=== PATIENT | female | born 1930 | race Caucasian/White ===

== ENCOUNTER 2017-06-24 09:24 | Emergency (ER) | payer OTHER ==
[2017-06-24] MEDS ORDERED: IPRATROPIUM BROM 0.5MG/2.5ML ONE (10:18)
[2017-06-24] MEDS ORDERED: ALBUTEROL 2.5 MG/3 ML NEB SOL ONE (10:18)
[2017-06-24] MEDS ORDERED: predniSONE 20 MG TAB ONE (10:18)
[2017-06-24] MEDS ORDERED: METHYLPREDNISOLONE 40 MG INJ ONE (10:28)
--- NOTE | 2017-06-24 10:51 | RAD REPORT ---
EXAM DESCRIPTION: CT - Thorax Wo Con CLINICAL HISTORY: Cough, chest pain. COMPARISON: None FINDINGS: Mild linear subsegmental atelectasis is present both posterior lung bases. Moderate bronch iectasis is present bilaterally. No focal infiltrate is present. No pneumothorax. No pleural or peric ardial fluid. No axillary, mediastinal or hilar adenopathy. No concerning bony finding. Moderate axial hiatal hernia. All CT scans are performed using dose optimization technique as appropriate and may include automated exposure control or mA/KV adjustment according to patient size. IMPRESSION: Moderate bilateral bronchiectasis.
[2017-06-24 11:45] LABS: Absolute Lymphocytes (CBC) 1.3 K/uL (0.7-4.9); Absolute Monocytes 0.6 K/uL (0.1-1.3); Absolute Neutrophil 5.7 K/uL (1.8-8.0); Basophils % 0.5 % (0-1.3); Eosinophils % 0.4 % (0-4.4); Hematocrit 41.4 % (36.0-45.0); Lymphocytes % 17.3 % (15.3-44.8); MCH 31.1 pg (27.0-35.0); MCV 92.2 fL (80-100); MPV 9.8 fL (7.6-11.3); RBC Red Blood Cell Count 4.49 M/uL (3.86-4.86)
[2017-06-24 11:49] LABS: Protime INR 1.12
[2017-06-24 12:00] LABS: Potassium 3.6 mEq/L (3.6-5.0)
--- NOTE | 2017-06-24 12:17 | EDPHYS ---
Physician Documentation [facility] Name: Joselyn Lomeli Age: 86 yrs Sex: Female : 1930 Arrival Date: 06/24/2017 Time: 09:28 Bed 15 Private MD: ED Physician Dano Tolbert HPI: 06/24 14:47 This 86 yrs old Female presents to ER via Wheelchair with complaints of Chest gs Congestion. 14:47 The patient or guardian reports cough, difficulty breathing. Onset: The gs symptoms/episode began/occurred gradually, 1 week(s) ago, and became persistent. Severity of symptoms: At their worst the symptoms were moderate, in the emergency department the symptoms are unchanged. Modifying factors: The symptoms are alleviated by nothing. Associated signs and symptoms: Pertinent negatives: fever. The patient has experienced similar episodes in the past, several times. The patient has been recently seen by a physician: the patient's primary care provider, 4 day(s) ago, with similar presenting complaints. concerned may have aspirated as has esophageal diverticulum. Historical: - Allergies: 09:36 Bactrim; aa5 09:36 Iodine; aa5 09:36 Sulfa (Sulfonamide Antibiotics); aa5 - Home Meds: 09:36 aspirin 81 mg Oral TbEC 1 tab three times a week [Active]; Diovan 320 mg Oral tab 1 tab hj once daily [Active]; - PMHx: 09:36 diptheria; esophageal pouch; hiatal hernia; Hypertension; Irregular heart rate; Polio; aa5 COPD; - PSHx: 09:36 Appendectomy; Hysterectomy; cardiac ablasion; kidney stone removal; aa5 - Immunization history:: Pneumococcal vaccine is not up to date, Flu vaccine is not up to date. - Social history:: Smoking status: Patient/guardian denies using tobacco, never smoked. ROS: 14:47 All other systems are negative. gs Exam: 14:47 Head/Face: Normocephalic, atraumatic. Eyes: Pupils equal round and reactive to light, gs extra-ocular motions intact. Lids and lashes normal. Conjunctiva and sclera are non-icteric and not injected. Cornea within normal limits. Periorbital areas with no swelling, redness, or edema. ENT: Nares patent. No nasal discharge, no septal abnormalities noted. Tympanic membranes are normal and external auditory canals are clear. Oropharynx with no redness, swelling, or masses, exudates, or evidence of obstruction, uvula midline. Mucous membranes moist. Neck: Trachea midline, no thyromegaly or masses palpated, and no cervical lymphadenopathy. Supple, full range of motion without nuchal rigidity, or vertebral point tenderness. No Meningismus. Chest/axilla: Normal chest wall appearance and motion. Nontender with no deformity. No lesions are appreciated. Cardiovascular: Regular rate and rhythm with a normal S1 and S2. No gallops, murmurs, or rubs. Normal PMI, no JVD. No pulse deficits. Abdomen/GI: Soft, non-tender, with normal bowel sounds. No distension or tympany. No guarding or rebound. No evidence of tenderness throughout. Back: No spinal tenderness. No costovertebral tenderness. Full range of motion. Skin: Warm, dry with normal turgor. Normal color with no rashes, no lesions, and no evidence of cellulitis. MS/ Extremity: Pulses equal, no cyanosis. Neurovascular intact. Full, normal range of motion. Neuro: Awake and alert, GCS 15, oriented to person, place, time, and situation. Cranial nerves II-XII grossly intact. Motor strength 5/5 in all extremities. Sensory grossly intact. Cerebellar exam normal. Normal gait. 14:47 Constitutional: The patient appears alert, awake. 14:47 Respiratory: the patient does not display signs of respiratory distress, Respirations: no acute changes, is not noted, Breath sounds: rhonchi, that are moderate, wheezing: expiratory that is mild. 14:47 ECG was reviewed by the Attending Physician. Vital Signs: 09:34 BP 134 / 69; Pulse 86; Resp 16 S; Temp 97.6(TE); Pulse Ox 96% on R/A; Weight 61.23 kg aa5 (R); Height 5 ft. 6 in. (167.64 cm) (R); Pain 0/10; 10:49 BP 137 / 71; Pulse 79; Resp 16; Pulse Ox 95% on Nebulizer Mask; mh5 12:52 BP 138 / 70; Pulse 75; Resp 18; Pulse Ox 100% on R/A; hj 09:34 Body Mass Index 21.79 (61.23 kg, 167.64 cm) aa MDM: 10:05 Patient medically screened. gs 14:47 Differential Diagnosis: Upper Respiratory Infection Asthma Exacerbation Pneumonia. Data reviewed: vital signs, nurses notes. Response to treatment: the patient's symptoms have markedly improved after treatment, and as a result, I will discharge patient. Physician consultation: Vini Monroy MD regarding consult, patient's condition, need to evaluate the patient as soon as possible, and will see patient in inpatient room. 06/24 10:11 Order name: Basic Metabolic Panel; Complete Time: 12:13 06/24 10:11 Order name: CBC with Diff; Complete Time: 12: 06/24 10:11 Order name: CT Chest Wo Con; Complete Time: 11: 06/24 10:11 Order name: PT-INR; Complete Time: 12: 06/24 10:11 Order name: Troponin (emerg Dept Use Only); Complete Time: 12: 06/24 10:11 Order name: Blood Culture* 06/24 10:11 Order name: EKG; Complete Time: 10:12 06/24 10:11 Order name: Cardiac monitoring; Complete Time: 10: 06/24 10:11 Order name: EKG - Nurse/Tech; Complete Time: 11:17 06/24 10:11 Order name: IV Saline Lock; Complete Time: 11: 06/24 10:11 Order name: Labs collected and sent; Complete Time: 11: 06/24 10:11 Order name: O2 Per Protocol; Complete Time: 10: 06/24 10:11 Order name: O2 Sat Monitoring; Complete Time: 10: 06/24 11:20 Order name: Labs - recollect needed; Complete Time: 11:24 bd EC:47 Rate is 63 beats/min. Rhythm is regular. WA interval is prolonged. QRS interval is gs normal. QT interval is normal. T waves are Normal. No ST changes noted. Clinical impression: Abnormal EKG without significant change. Interpreted by me. Administered Medications: 10:23 Not Given (Patient Refused): predniSONE 40 mg PO once hj 10:30 Drug: Albuterol 2.5 mg Route: Inhalation; rv 10:30 Drug: AtroVENT Aerosol 0.5 mg Route: Inhalation; rv 11:00 Drug: SOLU-Medrol 40 mg Route: IVP; Site: left antecubital; rv 11:22 Follow up: Response: No adverse reaction hj Disposition: 06/24/17 12:17 Discharged to Home. Impression: Chronic obstructive pulmonary disease with (acute) exacerbation. - Condition is Stable. - Discharge Instructions: Chronic Obstructive Pulmonary Disease. - Medication Reconciliation Form, Thank You Letter, Antibiotic Education, Prescription Opioid Use form. - Follow up: Private Physician; When: 2 - 3 days; Reason: Recheck today's complaints, Re-evaluation by your physician. Signatures: Dispatcher [employer] EDBrooklyn Tabares Audri RN RN aa5 Richard Hall RN RN hj Dano Tolbert MD MD gs Maurizio Rubalcava RN RN rv Corrections: (The following items were deleted from the chart) 12:53 12:17 06/24/2017 12:17 Discharged to Home. Impression: Chronic obstructive pulmonary hj disease with (acute) exacerbation. Condition is Stable. Forms are Medication Reconciliation Form, Thank You Letter, Antibiotic Education, Prescription Opioid Use. Follow up: Private Physician; When: 2 - 3 days; Reason: Recheck today's complaints, Re-evaluation by your physician. gs
--- NOTE | 2017-06-24 12:17 | ER ---
Nurse's Notes [facility] Name: Joselyn Lomeli Age: 86 yrs Sex: Female : 1930 Arrival Date: 06/24/2017 Time: 09:28 Bed 15 Private MD: Diagnosis: Chronic obstructive pulmonary disease with (acute) exacerbation Presentation: 06/24 09:33 Presenting complaint: Patient states: chest congestion and cough. Pt states aa5 " gave me a steroid (prednisone) and cough syrup but it's not helping". Pt also reports SOB. Transition of care: patient was not received from another setting of care. Onset of symptoms was June 2017. Initial Sepsis Screen: Does the patient meet any 2 criteria? No. Patient's initial sepsis screen is negative. Does the patient have a suspected source of infection? No. Patient's initial sepsis screen is negative. Care prior to arrival: None. 09:33 Method Of Arrival: Wheelchair aa5 09:33 Acuity: AZAR 3 aa5 Triage Assessment: 09:53 General: Appears in no apparent distress. uncomfortable, Behavior is calm, cooperative, hj appropriate for age. Pain: Denies pain. Historical: - Allergies: 09:36 Bactrim; aa5 09:36 Iodine; aa5 09:36 Sulfa (Sulfonamide Antibiotics); aa5 - Home Meds: 09:36 aspirin 81 mg Oral TbEC 1 tab three times a week [Active]; Diovan 320 mg Oral tab 1 tab hj once daily [Active]; - PMHx: 09:36 diptheria; esophageal pouch; hiatal hernia; Hypertension; Irregular heart rate; Polio; aa5 COPD; - PSHx: 09:36 Appendectomy; Hysterectomy; cardiac ablasion; kidney stone removal; aa5 - Immunization history:: Pneumococcal vaccine is not up to date, Flu vaccine is not up to date. - Social history:: Smoking status: Patient/guardian denies using tobacco, never smoked. Screenin:53 Abuse screen: Denies threats or abuse. Denies injuries from another. Nutritional hj screening: No deficits noted. Tuberculosis screening: No symptoms or risk factors identified. Fall Risk Secondary diagnosis (15 points) polio. Assessment: 09:55 General: Appears in no apparent distress. uncomfortable, Behavior is calm, cooperative, hj appropriate for age. Pain: Denies pain. Neuro: Level of Consciousness is awake, alert, obeys commands, Oriented to person, place, time, situation, Appropriate for age. Cardiovascular: Capillary refill < 3 seconds Patient's skin is warm and dry. Respiratory: Airway is patent Respiratory effort is even, unlabored, Respiratory pattern is regular, symmetrical. GI: No signs and/or symptoms were reported involving the gastrointestinal system. : No signs and/or symptoms were reported regarding the genitourinary system. EENT: No signs and/or symptoms were reported regarding the EENT system. Derm: No signs and/or symptoms reported regarding the dermatologic system. Musculoskeletal: No signs and/or symptoms reported regarding the musculoskeletal system. 10:45 Reassessment: Patient and/or family updated on plan of care and expected duration. Pain hj level reassessed. Patient is alert, oriented x 3, equal unlabored respirations, skin warm/dry/pink. Patient states feeling better. 11:30 Reassessment: Patient and/or family updated on plan of care and expected duration. Pain hj level reassessed. Patient is alert, oriented x 3, equal unlabored respirations, skin warm/dry/pink. awaiting results and POC; family in room;. 12:52 Reassessment: Patient and/or family updated on plan of care and expected duration. Pain hj level reassessed. Patient is alert, oriented x 3, equal unlabored respirations, skin warm/dry/pink. for D/C instructions; Patient states feeling better. Vital Signs: 09:34 BP 134 / 69; Pulse 86; Resp 16 S; Temp 97.6(TE); Pulse Ox 96% on R/A; Weight 61.23 kg aa5 (R); Height 5 ft. 6 in. (167.64 cm) (R); Pain 0/10; 10:49 BP 137 / 71; Pulse 79; Resp 16; Pulse Ox 95% on Nebulizer Mask; mh5 12:52 BP 138 / 70; Pulse 75; Resp 18; Pulse Ox 100% on R/A; hj 09:34 Body Mass Index 21.79 (61.23 kg, 167.64 cm) aa5 ED Course: 09:28 Patient arrived in ED. sb2 09:34 Triage completed. aa5 09:34 Arm band placed on. aa5 09:44 Richard Hall, RN is Primary Nurse. hj 09:49 Dano Tolbert MD is Attending Physician. 09:53 Patient has correct armband on for positive identification. Placed in gown. Bed in low hj position. Call light in reach. Side rails up X 1. Adult w/ patient. 10:31 CT completed. Patient tolerated procedure well. Patient moved to CT via stretcher. Patient moved back from CT. 10:35 CT Chest Wo Con In Process Unspecified. EDMS 10:42 EKG done, by landfill gas technician. reviewed by Dano Tolbert MD. sm3 11:20 Inserted saline lock:. rv 11:20 Inserted saline lock: 22 gauge in left antecubital area, using aseptic technique. rv 12:53 No provider procedures requiring assistance completed. IV discontinued, intact, hj bleeding controlled, No redness/swelling at site. Pressure dressing applied. Administered Medications: 10:23 Not Given (Patient Refused): predniSONE 40 mg PO once hj 10:30 Drug: Albuterol 2.5 mg Route: Inhalation; rv 10:30 Drug: AtroVENT Aerosol 0.5 mg Route: Inhalation; rv 11:00 Drug: SOLU-Medrol 40 mg Route: IVP; Site: left antecubital; rv 11:22 Follow up: Response: No adverse reaction hj Outcome: 12:17 Discharge ordered by . 12:53 Discharged to home ambulatory, with family. hj 12:53 Condition: stable 12:53 Discharge instructions given to patient, family, Instructed on discharge instructions, follow up and referral plans. Demonstrated understanding of instructions, follow-up care. 12:53 Patient left the ED. Signatures: Dispatcher [employer] EDOK Jalyn Ugarte Audri, RN RN aa5 Richard Hall, RN Shakira Pacheco 5 Dano Tolbert MD MD Shelly Patel 2 Francisca Willard 3 Maurizio Rubalcava RN RN rv
--- NOTE | 2017-06-24 15:39 | EKG ---
Test Date: 2017-06-24 Test Time: 10:52:16 Machine Adjuster Leader: SARAH MEASUREMENT RESULTS: Intervals: Rate: 63 IL: 222 QRSD: 82 QT: 384 QTc: 392 [place]: P: 57 IL: 222 QRS: -13 T: 35 INTERPRETIVE STATEMENTS: Sinus rhythm with 1st degree AV block Otherwise normal ECG Compared to ECG 03/05/2017 10:41:51 Left ventricular hypertrophy no longer present Electronically Signed On 06-24-17 15:38:35 CDT by Diomedes Wright
== END 2017-06-24 12:53 | disposition home or self-care (01) ==
LOC: ER 09:24
DX: J44.1 Chronic obstructive pulmonary disease with (acute) exacerbation (principal); I10 Essential (primary) hypertension; Z79.82 Long term (current) use of aspirin; Z88.1 Allergy status to other antibiotic agents; Z88.2 Allergy status to sulfonamides; Z91.048 Other nonmedicinal substance allergy status
CPT/HCPCS: 36415; 71250; 80048; 84484; 85025; 85610; 87040 ×2; 93005; 96374; 99285; J2920; J7512

== ENCOUNTER 2017-10-24 09:16 | Emergency (ER) | payer OTHER ==
--- OUTSIDE RECORDS SUMMARY | 2017-10-24 09:19 | XMS REPORT | CCD ---
:1930 Author Organization [facility] Team Providers Name Role Phone Abdullahi Morrow Referring Provider Allergies, Adverse Reactions, Alerts Substance Reaction Status sulfa drugs Active Problem List Condition Effective Dates Status Dysphagia Resolved Post poliomyelitis syndrome Resolved Medications Medication Instructions Start Date End Date Status Aspirin Enteric Coated 81 mg 81 mg, three times a week, Substitution Allowed 11/15/2012 Ordered oral delayed release tablet three times a week Vital Signs Most recent to oldest [Reference Range]: 1 Height 167.64 cm (11/15/2012 10:39:00) Temperature Oral [96.4-99.1 DegF] 98 DegF (11/15/2012 10:39:00) Systolic Blood Pressure [90-140 mmHg] 159 mmHg *HI* (11/15/2012 10:39:00) Diastolic Blood Pressure [60-90 mmHg] 66 mmHg (11/15/2012 10:39:00) Respiratory Rate [14-20 BRMIN] 18 BRMIN (11/15/2012 10:39:00) Peripheral Pulse Rate [60-100 bpm] 55 bpm *LOW* (11/15/2012 10:39:00) Weight 60 kg (11/15/2012 10:39:00)
--- OUTSIDE RECORDS SUMMARY | 2017-10-24 09:19 | XMS REPORT | CCD ---
:1930 Author Organization [facility] Team Providers Name Role Phone Abdullahi [...]
--- OUTSIDE RECORDS SUMMARY | 2017-10-24 09:19 | XMS REPORT | Summary of Care ---
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/17 Gastro-esophageal reflux disease without esophagitis (Final) - Acute paralytic poliomyelitis, unspecified (Final) - Discharge Disposition: Home or Self Care Attending Physician: Ethan Moore MD Referring Physician: Tai Clarke MD Vital Signs Most recent to oldest [Reference Range]: 1 Height 167.64 cm (05/02/17 12:33 PM) Temperature Oral [96.4-99.1 DegF] 98.7 DegF (05/02/17 12:33 PM) Blood Pressure [90-140/60-90 mmHg] 167/74 mmHg *HI* (05/02/17 12:33 PM) Respiratory Rate [14-20 BRMIN] 20 BRMIN (05/02/17 12:33 PM) Peripheral Pulse Rate [60-100 bpm] 72 bpm (05/02/17 12:33 PM) Weight 61.364 kg (05/02/17 12:33 PM) Body Mass Index 21.84 m2 (05/02/17 12:33 PM) Problem List Condition Effective Dates Status Health Status Informant Dysphagia(Confirmed) Resolved Post poliomyelitis Resolved syndrome(Confirmed) Allergies, Adverse Reactions, Alerts Substance Reaction Severity Status sulfa drugs Active Medications No data available for this section Results No data available for this section Immunizations No data available for this section Procedures Procedure Date Related Diagnosis Body Site Status Hard X-rays Completed Social History Social History Type Response Smoking Status Never smoker; Ready to change: No; Concerns about tobacco use in household: No; Exposure to Tobacco Smoke None; Cigarette Smoking Last 365 Days No; Reg Smoking Cessation Counseling No entered on: 05/02/17 Assessment and Plan No data available for this section
--- OUTSIDE RECORDS SUMMARY | 2017-10-24 09:19 | XMS REPORT | CCD ---
:1930 Author Organization [facility] Team Providers Name Role Phone Abdullahi [...]
--- OUTSIDE RECORDS SUMMARY | 2017-10-24 09:19 | XMS REPORT | Continuity of Care Document ---
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 MCQUEEN PT Active 12/21/19 [facility] 17 6 MO FU Active 11/16/19 [facility] 13 FU Active 10/26/19 [facility] 13 F/U Active 08/01/19 [facility] 13 RE-EVAL Active 07/27/19 [facility] 13 Dysphagia Resolved Problem 08/08/2017 [facility] Post Resolved Problem 08/08/2017 [facility] poliomyelitis syndrome Dysphagia Resolved Problem 11/17/2012 [facility] Post Resolved Problem 11/17/2012 [facility] poliomyelitis syndrome Gastro-esophageal 08/08/2017 [facility] reflux disease without esophagitis Acute paralytic 08/08/2017 [facility] poliomyelitis, unspecified PROG MUSCULAR Active [facility] ATROPHY FOLLOW-UP EXAM Active [facility] NOS POSTPOLIO Active [facility] SYNDROME Medications Medication Details Route Status Patient Ordering Order Source Instructions Provider Date Aspirin 81 mg, three Active [facility] Enteric times a week, 013 Coated 81 mg Substitution oral delayed Allowedthree release times a week tablet aspirin Substitution Active [facility] Allowed 013 Diovan 320 mg 320 mg, 1 tab, PO Active [facility] oral tablet PO, Daily, 30 013 tab, Substitution Allowed, TAB Allergies, Adverse Reactions, Alerts Substance Category Reaction Severity Reaction Status Date Comments Source type Reported sulfa drugs Assertion Drug Active [facility] allergy Immunizations Immunization Date Given Site Status Last Updated Comments Source Results Order Name Results Value Reference Date Interpretation Comments Source Range Microbiology Culture: Urine 07/31 [facility] Turbidity Slight Cloudy Clear 07/31 [facility] (07/31/2012 11:45:00) URINALYSIS UA Color Yellow Yellow 07/31 NA *NA* (07/31/2012 11:45:00) URINALYSIS UA Spec Grav 1.008 <=1.030 07/31 Normal [facility] URINALYSIS UA pH 6.0 5.0 - 8.0 07/31 Normal [facility] URINALYSIS UA Leuk Est Negative Negative 07/31 Normal [facility] (07/31/2012 11:45:00) URINALYSIS UA 0.2 EU/dL 0.1 - 1.0 07/31 Normal [facility] Urobilinogen /2012 URINALYSIS UA Nitrite Negative Negative 07/31 Normal [facility] (07/31/2012 11:45:00) URINALYSIS UA Ketones Negative Negative 07/31 NA [facility] *NA* (07/31/2012 11:45:00) URINALYSIS UA Glucose Negative Negative 07/31 Normal [facility] (07/31/2012 11:45:00) URINALYSIS UA Bili Negative Negative 07/31 NA [facility] *NA* (07/31/2012 11:45:00) URINALYSIS UA Protein Negative Negative 07/31 Normal [facility] (07/31/2012 11:45:00) URINALYSIS UA Blood Negative Negative 07/31 Normal [facility] (07/31/2012 11:45:00) URINALYSIS UA Bacteria Many /HPF None Seen 07/31 Normal [facility] (07/31/2012 11:45:00) URINALYSIS UA WBC 0-2 /HPF None Seen 07/31 Normal [facility] (07/31/2012 11:45:00) URINALYSIS UA Sq Epi Few /LPF Few 07/31 Normal [facility] (07/31/2012 11:45:00) URINALYSIS Micro? Performed 07/31 Normal [facility] (07/31/2012 11:45:00) Vital Signs Vital Sign Value Date Comments Source Weight 61.364 05/02/2017 [facility] BMI Calculated 21.84 05/02/2017 [facility] Systolic (mm Hg) 167 05/02/2017 [facility] Diastolic (mm Hg) 74 05/02/2017 [facility] Respitory Rate 20 05/02/2017 [facility] Heart Rate 72 05/02/2017 [facility] Height 167.64 cm 05/02/2017 [facility] Temperature Oral (F) 98.7 F 05/02/2017 [facility] Height 167.64 cm 11/15/2012 [facility] Weight 60 11/15/2012 [facility] Temperature Oral (F) 98 F 11/15/2012 [facility] Respitory Rate 18 11/15/2012 [facility] Heart Rate 55 11/15/2012 [facility] Diastolic (mm Hg) 66 11/15/2012 [facility] Systolic (mm Hg) 159 11/15/2012 [facility] Respitory Rate 18 08/30/2012 [facility] Temperature Oral (F) 98.8 F 08/30/2012 [facility] Diastolic (mm Hg) 70 08/30/2012 [facility] Heart Rate 69 08/30/2012 [facility] Systolic (mm Hg) 139 08/30/2012 [facility] Weight 61.364 08/30/2012 [facility] Height 167.64 cm 08/30/2012 [facility] Weight 61.364 07/31/2012 [facility] Height 165.1 cm 07/31/2012 [facility] Heart Rate 58 07/31/2012 [facility] Diastolic (mm Hg) 73 07/31/2012 [facility] Systolic (mm Hg) 156 07/31/2012 [facility] Respitory Rate 18 07/31/2012 [facility] Temperature Oral (F) 98.8 F 07/31/2012 [facility] Encounters Location Location Encounter Encounter Reason Attending ADM DC Status Source Details Type Number For Provider Date Date Visit Outpatient [id number] RE-SHANDA PERALTA 07/31 07/31 Active [facility] /2012 Outpatient [id number] F/U FABIAN 08/30 Active [facility] Outpatient [id number] FABIAN 11/15 Active [facility] [id number] Tai 05/02 05/03 [facility] /2017 [facility] Outpatient [id number] FABIAN Active [facility] Procedures Procedure Code Date Perfomer Comments Source Hard X-rays [id number] [facility] Hard X-rays [id number] [facility]
--- OUTSIDE RECORDS SUMMARY | 2017-10-24 09:19 | XMS REPORT | CCD ---
:1930 Author Organization [facility] Team Providers Name Role Phone Abdullahi Morrow Referring Provider Allergies, Adverse Reactions, Alerts Substance Reaction Status sulfa drugs Active Problem List Condition Effective Dates Status Dysphagia Resolved Post poliomyelitis syndrome Resolved Vital Signs Most recent to oldest [Reference Range]: 1 Height 167.64 cm (08/30/2012 11:20:00) Temperature Oral [96.4-99.1 DegF] 98.8 DegF (08/30/2012 11:20:00) Systolic Blood Pressure [90-140 mmHg] 139 mmHg (08/30/2012 11:20:00) Diastolic Blood Pressure [60-90 mmHg] 70 mmHg (08/30/2012 11:20:00) Respiratory Rate [14-20 BRMIN] 18 BRMIN (08/30/2012 11:20:00) Peripheral Pulse Rate [60-100 bpm] 69 bpm (08/30/2012 11:20:00) Weight 61.364 kg (08/30/2012 11:20:00)
--- OUTSIDE RECORDS SUMMARY | 2017-10-24 09:19 | XMS REPORT | CCD ---
:1930 Author Organization [facility] Team Providers Name Role Phone Abdullahi Morrow Referring Provider Allergies, Adverse Reactions, Alerts Substance Reaction Status sulfa drugs Active Problem List Condition Effective Dates Status Post poliomyelitis syndrome Resolved Medications Medication Instructions Start Date End Date Status aspirin Substitution Allowed 07/31/2012 Ordered Diovan 320 mg oral tablet 320 mg, 1 tab, PO, Daily, 30 07/31/2012 Ordered tab, Substitution Allowed, TAB Vital Signs Most recent to oldest [Reference Range]: 1 Height 165.1 cm (07/31/2012 10:21:00) Temperature Oral [96.4-99.1 DegF] 98.8 DegF (07/31/2012 10:21:00) Systolic Blood Pressure [90-140 mmHg] 156 mmHg *HI* (07/31/2012 10:21:00) Diastolic Blood Pressure [60-90 mmHg] 73 mmHg (07/31/2012 10:21:00) Respiratory Rate [14-20 BRMIN] 18 BRMIN (07/31/2012 10:21:00) Peripheral Pulse Rate [60-100 bpm] 58 bpm *LOW* (07/31/2012 10:21:00) Weight 61.364 kg (07/31/2012 10:21:00) Results URINALYSIS Most recent to oldest [Reference Range]: 1 UA Turbidity [Clear] Slight Cloudy (07/31/2012 11:45:00) UA Color [Yellow] Yellow *NA* (07/31/2012 11:45:00) UA pH [5.0-8.0] 6.0 (07/31/2012 11:45:00) UA Spec Grav [<=1.030] 1.008 (07/31/2012 11:45:00) UA Glucose [Negative] Negative (07/31/2012 11:45:00) UA Blood [Negative] Negative (07/31/2012 11:45:00) UA Ketones [Negative] Negative *NA* (07/31/2012 11:45:00) UA Protein [Negative] Negative (07/31/2012 11:45:00) UA Urobilinogen [0.1-1.0 EU/dL] 0.2 EU/dL (07/31/2012 11:45:00) UA Bili [Negative] Negative *NA* (07/31/2012 11:45:00) UA Leuk Est [Negative] Negative (07/31/2012 11:45:00) UA Nitrite [Negative] Negative (07/31/2012 11:45:00) UA WBC [None Seen /HPF] 0-2 /HPF (07/31/2012 11:45:00) UA Bacteria [None Seen /HPF] Many /HPF (07/31/2012 11:45:00) UA Sq Epi [Few /LPF] Few /LPF (07/31/2012 11:45:00) Micro? Performed (07/31/2012 11:45:00) Microbiology Reports PROCEDURE:Culture: Urine STATUS: Auth (Verified) BODY SITE: COLLECTED DATE/TIME: 07/31/2012 11:45:25 SOURCE: Urine, Clean Catch FREE TEXT SOURCE: FINAL REPORTS Final Report>100,000 CFU/mL Escherichia coli <10,000 CFU/mL Skin EnriquetaPRELIMINARY REPORTS Preliminary Report> 100,000 CFU/mL Escherichia coli Susceptibility To FollowSUSCEPTIBILITY REPORT EC Antibiotic INTERP. VDIL Amikacin S Ampicillin R Ampicillin/Sulbactam R Cefazolin R Cefepime S Ceftriaxone S Cefuroxime S ESBL Confirmation - Gentamicin S Levofloxacin R Meropenem S Nitrofurantoin S Piperacillin/Tazobactam S Tetracycline S Tobramycin S Trimethoprim/Sulfamethoxazole S Procedures Procedures Date Related Diagnosis Hard X-rays
--- OUTSIDE RECORDS SUMMARY | 2017-10-24 09:19 | XMS REPORT | CCD ---
:1930 Author Organization [facility] Team Providers Name Role Phone Abdullahi [...]
--- OUTSIDE RECORDS SUMMARY | 2017-10-24 09:19 | XMS REPORT | CCD ---
:1930 Author Organization [facility] Team Providers Name Role Phone Abdullahi [...]
--- OUTSIDE RECORDS SUMMARY | 2017-10-24 09:19 | XMS REPORT | Summary of Care ---
:1930 Author Organization [facility] Address [address] [place] [id number] Encounter HQ Encntr_beba(FIN) [id number] Date(s): 05/02/17 - 05/02/[address] EM [phone] Encounter Diagnosis Postpolio syndrome (Final) - 05/05/17 [...]
[2017-10-24] MEDS ORDERED: FENTANYL CITR 100 MCG/2 ML ONE (10:35)
[2017-10-24] MEDS ORDERED: LEVALBUTEROL 1.25 MG/3 ML NEB ONE (10:36)
[2017-10-24] MEDS ORDERED: NA CHLORIDE 0.9% 500 ML ONE (10:36)
[2017-10-24] MEDS ORDERED: IPRATROPIUM BROM 0.5MG/2.5ML ONE (10:36)
[2017-10-24] MEDS ORDERED: ONDANSETRON 4 MG/2 ML VIAL ONE (10:36)
--- NOTE | 2017-10-24 10:51 | RAD REPORT ---
EXAM DESCRIPTION: CT - Spine Lumbar Wo Con - 10/24/2017 10:32 am CLINICAL HISTORY: Radiculopathy.Trauma. PAIN COMPARISON: No comparisons TECHNIQUE: Axial noncontrast CT imaging of the lumbar spine was performed with coronal and sagittal re-formatted images. All CT scans are performed using dose optimization technique as appropriate and may include automated exposure control or mA/KV adjustment according to patient size. FINDINGS: Mild central compression deformity affects the L1 vertebral body with estimated vertebral body height loss of 15%. Diffuse osteopenia is present. Paraspinal tissues are normal in thickness. No paraspinal abscess or hematoma seen. Aortic atherosclerosis. Severe central canal stenosis not seen. IMPRESSION: Mild central compression deformity affecting the L1 vertebral body with vertebral body h eight loss estimated at 15%. Given the clinical history of acute back pain, this probably is an acute fracture.
[2017-10-24 11:01] LABS: Absolute Lymphocytes (CBC) 0.6 K/uL (0.7-4.9); Absolute Monocytes 0.4 K/uL (0.1-1.3); Absolute Neutrophil 4.1 K/uL (1.8-8.0); Basophils % 1.1 % (0-1.3); Eosinophils % 1.5 % (0-4.4); Hematocrit 37.8 % (36.0-45.0); MCH 32.8 pg (27.0-35.0); MCV 92.6 fL (80-100); MPV 9.8 fL (7.6-11.3); Monocytes % 7.6 % (3.3-12.3); RBC Red Blood Cell Count 4.08 M/uL (3.86-4.86)
[2017-10-24 11:39] LABS: ALT/SGPT 16 U/L (12-78); AST/SGOT 16 U/L (15-37); Albumin 3.6 g/dL (3.4-5.0); Alkaline Phosphatase 83 U/L (45-117); BUN Blood Urea Nitrogen 12 mg/dL (7-18); Bicarbonate 31 mmol/L (21-32); Bilirubin Total 0.9 mg/dL (0.2-1.0); Glucose Level 111 mg/dL (74-106); Potassium 4.5 mmol/L (3.5-5.1); Sodium Level 136 mmol/L (136-145)
--- NOTE | 2017-10-24 11:45 | EDPHYS ---
Physician Documentation [facility] Name: Joselyn Lomeli Age: 87 yrs Sex: Female : 1930 Arrival Date: 10/24/2017 Time: 09:19 Bed 18 Private MD: Sharron Desir H ED Physician Joao Lomeli HPI: 10/24 10:12 This 87 yrs old Female presents to ER via Wheelchair with complaints of Back twin Pain. 10:12 The patient presents with pain that is acute. The symptoms are located in the low back. twin Onset: The symptoms/episode began/occurred 2 day(s) ago. The pain does not radiate. Associated signs and symptoms: The patient has no apparent associated signs or symptoms. The problem was sustained when bending over. Modifying factors: The patient symptoms are alleviated by remaining still, the patient symptoms are aggravated by any movement, bending. Severity of symptoms: At their worst the symptoms were mild, moderate, in the emergency department the symptoms are unchanged. The patient has not experienced similar symptoms in the past. Historical: - Allergies: 09:30 Bactrim; hb 09:30 Iodine; hb 09:30 Sulfa (Sulfonamide Antibiotics); hb 09:30 Demerol; hb - Home Meds: 09:30 aspirin 81 mg Oral TbEC 1 tab three times a week [Active]; Diovan 320 mg Oral tab 1 tab hb once daily [Active]; - PMHx: 09:30 COPD; diptheria; esophageal pouch; hiatal hernia; Hypertension; Irregular heart rate; hb Polio; - PSHx: 09:30 Appendectomy; Hysterectomy; cardiac ablasion; kidney stone removal; hb - Immunization history:: Adult Immunizations up to date. - Social history:: Smoking status: Patient/guardian denies using tobacco. - Ebola Screening: : No symptoms or risks identified at this time. - Family history:: not pertinent. ROS: 10:12 Constitutional: Negative for fever, chills, and weight loss, Eyes: Negative for injury, twin pain, redness, and discharge, ENT: Negative for injury, pain, and discharge, Neck: Negative for injury, pain, and swelling, Cardiovascular: Negative for chest pain, palpitations, and edema, Abdomen/GI: Negative for abdominal pain, nausea, vomiting, diarrhea, and constipation, : Negative for injury, bleeding, discharge, and swelling, MS/Extremity: Negative for injury and deformity, Skin: Negative for injury, rash, and discoloration, Neuro: Negative for headache, weakness, numbness, tingling, and seizure, Psych: Negative for depression, anxiety, suicide ideation, homicidal ideation, and hallucinations, Allergy/Immunology: Negative for hives, rash, and allergies, Endocrine: Negative for neck swelling, polydipsia, polyuria, polyphagia, and marked weight changes, Hematologic/Lymphatic: Negative for swollen nodes, abnormal bleeding, and unusual bruising. 10:12 Respiratory: Positive for cough. 10:12 Back: Positive for injury or acute deformity, decreased range of motion, pain at rest, pain with movement. Exam: 10:12 Constitutional: This is a well developed, well nourished patient who is awake, alert, twin and in no acute distress. Head/Face: Normocephalic, atraumatic. Eyes: Pupils equal round and reactive to light, extra-ocular motions intact. Lids and lashes normal. Conjunctiva and sclera are non-icteric and not injected. Cornea within normal limits. Periorbital areas with no swelling, redness, or edema. ENT: Nares patent. No nasal discharge, no septal abnormalities noted. Tympanic membranes are normal and external auditory canals are clear. Oropharynx with no redness, swelling, or masses, exudates, or evidence of obstruction, uvula midline. Mucous membranes moist. Neck: Trachea midline, no thyromegaly or masses palpated, and no cervical lymphadenopathy. Supple, full range of motion without nuchal rigidity, or vertebral point tenderness. No Meningismus. Chest/axilla: Normal chest wall appearance and motion. Nontender with no deformity. No lesions are appreciated. Cardiovascular: Regular rate and rhythm with a normal S1 and S2. No gallops, murmurs, or rubs. Normal PMI, no JVD. No pulse deficits. Respiratory: Lungs have equal breath sounds bilaterally, clear to auscultation and percussion. No rales, rhonchi or wheezes noted. No increased work of breathing, no retractions or nasal flaring. Abdomen/GI: Soft, non-tender, with normal bowel sounds. No distension or tympany. No guarding or rebound. No evidence of tenderness throughout. Skin: Warm, dry with normal turgor. Normal color with no rashes, no lesions, and no evidence of cellulitis. MS/ Extremity: Pulses equal, no cyanosis. Neurovascular intact. Full, normal range of motion. Neuro: Awake and alert, GCS 15, oriented to person, place, time, and situation. Cranial nerves II-XII grossly intact. Motor strength 5/5 in all extremities. Sensory grossly intact. Cerebellar exam normal. Normal gait. Psych: Awake, alert, with orientation to person, place and time. Behavior, mood, and affect are within normal limits. 10:12 Back: pain, that is mild, that is moderate, ROM is painful, normal spinal alignment noted, CVA tenderness, is absent. Vital Signs: 09:30 BP 156 / 69; Pulse 81; Resp 14; Temp 98.6; Pulse Ox 100% on R/A; Weight 58.06 kg; hb Height 5 ft. 6 in. (167.64 cm); Pain 10/10; 10:45 BP 148 / 68; Pulse 80; Resp 15; Pulse Ox 100% on R/A; hb 09:30 Body Mass Index 20.66 (58.06 kg, 167.64 cm) hb MDM: 09:25 Patient medically screened. [facility] 10:15 Data reviewed: vital signs, nurses notes, lab test result(s), radiologic studies, CT [facility] scan. 10/24 10:12 Order name: CBC with Diff; Complete Time: 11:41 [facility] 10/24 10:12 Order name: Comprehensive Metabolic Panel; Complete Time: 11:41 [facility] 10/24 10:12 Order name: Urine Culture [facility] 10/24 10:12 Order name: CT Lumbar Spine Wo Con; Complete Time: 11:41 [facility] 10/24 11:37 Order name: Urine Dipstick--Ancillary (enter results) 10/24 10:12 Order name: Urine Dipstick-Ancillary (obtain specimen); Complete Time: 11:09 [facility] Administered Medications: 10:38 Drug: NS 0.9% 500 ml Route: IV; Rate: bolus; Site: right antecubital; hb 11:20 Follow up: Response: No adverse reaction; IV Status: Completed infusion hb 10:38 Drug: fentaNYL (PF) 25 mcg Route: IVP; Site: right antecubital; hb 11:10 Follow up: Response: No adverse reaction; Pain is decreased hb 10:38 Drug: Zofran 4 mg Route: IVP; Site: right antecubital; hb 11:10 Follow up: Response: No adverse reaction hb 10:38 Drug: Xopenex 1.25 mg Route: Inhalation; hb 11:10 Follow up: Response: No adverse reaction hb 10:38 Drug: AtroVENT Aerosol 0.5 mg Route: Inhalation; hb 11:09 Follow up: Response: No adverse reaction hb 11:54 Drug: Decadron - Dexamethasone 10 mg Route: IVP; Site: right antecubital; hb 12:20 Follow up: Response: No adverse reaction hb Disposition: 10/24/17 11:45 Discharged to Home. Impression: Low back pain, Other fracture of first lumbar vertebra - 15% height loss, compression fx, Fall due to bumping against object. - Condition is Stable. - Discharge Instructions: Back Pain, Adult, Spinal Compression Fracture, Chronic Obstructive Pulmonary Disease, Fall Prevention in the Home, Musculoskeletal Pain, Chronic Obstructive Pulmonary Disease, [id number]. - Prescriptions for Tylenol- Codeine #3 300-30 mg Oral Tablet - take 2 tablets by ORAL route every 6 hours As needed; 26 tablet. Medrol (Emil) 4 mg Oral Tablets, Dose Pack - take 1 tablet by ORAL route as directed - follow package instructions; 1 packet. Albuterol Sulfate 90 mcg/actuation - inhale 1-2 puff by INHALATION route every 4-6 hours; 1 Inhaler. Motrin IB 200 mg Oral Tablet - take 1 tablet by ORAL route every 6 hours As needed as needed with food; 20 tablet. - Medication Reconciliation Form, Thank You Letter, Antibiotic Education, Prescription Opioid Use form. - Follow up: Sharron Desir DO; When: 2 - 3 days; Reason: Recheck today's complaints, Continuance of care, Re-evaluation by your physician. Follow up: Harish Guo MD; When: 2 - 3 days; Reason: Recheck today's complaints, Continuance of care, Re-evaluation by your physician. - Problem is new. - Symptoms have improved. Signatures: Dispatcher [employer] Joao Kline MD MD cha Baxter, Heather RN RN Corrections: (The following items were deleted from the chart) 11:46 11:45 10/24/2017 11:45 Discharged to Home. Impression: Low back pain; Other fracture of twin first lumbar vertebra - 15% height loss, compression fx; Fall due to bumping against object. Condition is Stable. Forms are Medication Reconciliation Form, Thank You Letter, Antibiotic Education, Prescription Opioid Use. Follow up: Sharron Desir; When: 2 - 3 days; Reason: Recheck today's complaints, Continuance of care, Re-evaluation by your physician. Problem is new. Symptoms have improved. [facility] 12:36 11:46 10/24/2017 11:45 Discharged to Home. Impression: Low back pain; Other fracture of hb first lumbar vertebra - 15% height loss, compression fx; Fall due to bumping against object. Condition is Stable. Forms are Medication Reconciliation Form, Thank You Letter, Antibiotic Education, Prescription Opioid Use. Follow up: Sharron Desir; When: 2 - 3 days; Reason: Recheck today's complaints, Continuance of care, Re-evaluation by your physician. Follow up: Harish Guo; When: 2 - 3 days; Reason: Recheck today's complaints, Continuance of care, Re-evaluation by your physician. Problem is new. Symptoms have improved. [facility]
--- NOTE | 2017-10-24 11:45 | ER ---
Nurse's Notes [facility] Name: Joselyn Lomeli Age: 87 yrs Sex: Female : 1930 Arrival Date: 10/24/2017 Time: 09:19 Bed 18 Private MD: Sharron Desir H Diagnosis: Low back pain;Other fracture of first lumbar vertebra-15% height loss, compression fx;Fall due to bumping against object Presentation: 10/24 09:31 Presenting complaint: Patient states: Low and mid back pain after bending over to pick hb item up from floor yesterday. Transition of care: patient was not received from another setting of care. Onset of symptoms was October 23, 2017. Risk Assessment: Do you want to hurt yourself or someone else? Patient reports no desire to harm self or others. Initial Sepsis Screen: Does the patient meet any 2 criteria? No. Patient's initial sepsis screen is negative. Does the patient have a suspected source of infection? No. Patient's initial sepsis screen is negative. Care prior to arrival: None. 09:31 Acuity: AZAR 4 hb 09:31 Method Of Arrival: Wheelchair hb Triage Assessment: 09:32 General: Appears in no apparent distress. uncomfortable, Behavior is calm, cooperative. hb Pain: Pain currently is 10 out of 10 on a pain scale. EENT: No signs and/or symptoms were reported regarding the EENT system. Neuro: Level of Consciousness is awake, alert, obeys commands, Oriented to person, place, time, situation. Cardiovascular: Heart tones S1 S2 present Capillary refill < 3 seconds Patient's skin is warm and dry. Respiratory: Airway is patent Trachea midline Respiratory effort is even, unlabored, Respiratory pattern is regular, symmetrical, Breath sounds are diminished bilaterally. GI: No signs and/or symptoms were reported involving the gastrointestinal system. : No signs and/or symptoms were reported regarding the genitourinary system. Derm: No signs and/or symptoms reported regarding the dermatologic system. Skin is pink, warm \T\ dry. Musculoskeletal: Circulation, motion, and sensation intact. Reports pain in back. Historical: - Allergies: 09:30 Bactrim; hb 09:30 Iodine; hb 09:30 Sulfa (Sulfonamide Antibiotics); hb 09:30 Demerol; hb - Home Meds: 09:30 aspirin 81 mg Oral TbEC 1 tab three times a week [Active]; Diovan 320 mg Oral tab 1 tab hb once daily [Active]; - PMHx: 09:30 COPD; diptheria; esophageal pouch; hiatal hernia; Hypertension; Irregular heart rate; hb Polio; - PSHx: 09:30 Appendectomy; Hysterectomy; cardiac ablasion; kidney stone removal; hb - Immunization history:: Adult Immunizations up to date. - Social history:: Smoking status: Patient/guardian denies using tobacco. - Ebola Screening: : No symptoms or risks identified at this time. - Family history:: not pertinent. Screenin:32 Abuse screen: Denies threats or abuse. Denies injuries from another. Nutritional hb screening: No deficits noted. Tuberculosis screening: No symptoms or risk factors identified. Fall Risk Total Ramires Fall Scale indicates High Risk Score (45 or more points). Fall prevention measures have been instituted. Side Rails Up X 2 Frequent Obs/Assessments Occuring Family Present and informed to notify staff if the need to leave the bedside As available patient and family educated on Fall Prevention Program and Strategies. Assessment: 11:06 Reassessment: Up to bedside commode with assistance. Urine specimen provided as hb ordered. Pt assisted back to bed, bed locked in low position, call light within reach. Pt tolerated well. Family at bedside. Vital Signs: 09:30 BP 156 / 69; Pulse 81; Resp 14; Temp 98.6; Pulse Ox 100% on R/A; Weight 58.06 kg; hb Height 5 ft. 6 in. (167.64 cm); Pain 10/10; 10:45 BP 148 / 68; Pulse 80; Resp 15; Pulse Ox 100% on R/A; hb 09:30 Body Mass Index 20.66 (58.06 kg, 167.64 cm) hb ED Course: 09:19 Patient arrived in ED. sb2 09:19 Sharron Desir DO is Private Physician. sb2 09:24 Joao Lomeli MD is Attending Physician. twin 09:28 Mary Andres, CRISTA is Primary Nurse. hb 09:30 Arm band placed on right wrist. hb 09:32 Triage completed. hb 09:35 Patient has correct armband on for positive identification. Placed in gown. Bed in low hb position. Call light in reach. Side rails up X2. 10:22 Initial lab(s) drawn, by nh, [facility] lab[facility] 10:22 Inserted saline lock: 22 gauge in right antecubital area, using aseptic technique. 3 Blood collected. 10:[address] via stretcher. sj 10:32 CT completed. Patient tolerated procedure well. Patient moved back from CT. sj 10:33 CT Lumbar Spine Wo Con In Process Unspecified. EDWA 11:43 Sharron Desir DO is Referral Physician. [facility] 11:45 Harish Guo MD is Referral Physician. [facility] 12:22 No provider procedures requiring assistance completed. IV discontinued, intact, hb bleeding controlled, No redness/swelling at site. Pressure dressing applied. Administered Medications: 10:38 Drug: NS 0.9% 500 ml Route: IV; Rate: bolus; Site: right antecubital; hb 11:20 Follow up: Response: No adverse reaction; IV Status: Completed infusion hb 10:38 Drug: fentaNYL (PF) 25 mcg Route: IVP; Site: right antecubital; hb 11:10 Follow up: Response: No adverse reaction; Pain is decreased hb 10:38 Drug: Zofran 4 mg Route: IVP; Site: right antecubital; hb 11:10 Follow up: Response: No adverse reaction hb 10:38 Drug: Xopenex 1.25 mg Route: Inhalation; hb 11:10 Follow up: Response: No adverse reaction hb 10:38 Drug: AtroVENT Aerosol 0.5 mg Route: Inhalation; hb 11:09 Follow up: Response: No adverse reaction hb 11:54 Drug: Decadron - Dexamethasone 10 mg Route: IVP; Site: right antecubital; hb 12:20 Follow up: Response: No adverse reaction hb Outcome: 11:45 Discharge ordered by . twin 12:22 Discharged to home ambulatory. hb 12:22 Condition: stable 12:22 Discharge instructions given to patient, Instructed on discharge instructions, follow up and referral plans. medication usage, Demonstrated understanding of instructions, follow-up care, medications, Prescriptions given X 4. 12:36 Patient left the ED. hb Signatures: Dispatcher [employer] EDWA Joao Lomeli MD MD cha Jones, Susan Mary Andres RN RN N[facility] Shelly Patel sb2 Corrections: (The following items were deleted from the chart) 10:25 10:24 Inserted saline lock: 22 gauge in right antecubital area, using aseptic 3 technique. Blood collected. [facility] hospital
[2017-10-24 11:55] LABS: Urine Blood TRACE (NEG); Urine Glucose NEGATIVE (NEG); Urine Protein NEGATIVE (NEG)
[2017-10-24] MEDS ORDERED: DEXAMETHASONE 10 MG/ML VIAL ONE (11:57)
== END 2017-10-24 12:36 | disposition home or self-care (01) ==
LOC: ER 09:16
DX: S32.018A Other fracture of first lumbar vertebra, initial encounter for closed fracture (principal); W18.00XA Striking against unspecified object with subsequent fall, initial encounter; Y93.89 Activity, other specified; Y92.9 Unspecified place or not applicable; Z79.82 Long term (current) use of aspirin; Z88.1 Allergy status to other antibiotic agents; Z88.2 Allergy status to sulfonamides; Z88.5 Allergy status to narcotic agent; Z91.048 Other nonmedicinal substance allergy status; I10 Essential (primary) hypertension; J44.9 Chronic obstructive pulmonary disease, unspecified
CPT/HCPCS: 36415; 72131; 80053; 81003; 85025; 87086; 87088; 96361; 96374; 96375; 99285; J1100; J2405; J3010

== ENCOUNTER 2018-07-23 08:34 | Emergency (ER) | payer OTHER ==
--- OUTSIDE RECORDS SUMMARY | 2018-07-23 08:37 | XMS REPORT ---
:1930 [facility] Address [address] [place]. [address] [place] [id number] Care Team Providers Name Role Phone Unavailable Unavailable Unavailable Problems This patient has no known problems. Allergies, Adverse Reactions, Alerts This patient has no known allergies or adverse reactions. Medications This patient has no known medications.
--- OUTSIDE RECORDS SUMMARY | 2018-07-23 08:37 | XMS REPORT | Continuity of Care Document ---
[...] esophagitis Acute paralytic 08/08/2017 [facility] poliomyelitis, unspecified FOLLOW-UP EXAM Active [facility] NOS PROG MUSCULAR Active [facility] ATROPHY POSTPOLIO Active [facility] SYNDROME Medications Medication Details [...] UA Turbidity Slight Cloudy Clear 07/31 [facility] (07/[facility]2012 11:45:00) URINALYSIS UA Color Yellow Yellow 07/31 NA *NA* (07/31/2012 11:45:00) URINALYSIS UA Spec Grav 1.008 <=1.030 07/31 Normal [facility] URINALYSIS UA pH 6.0 5.0 - 8.0 07/31 Normal [facility] URINALYSIS UA Leuk Est Negative Negative 07/31 Normal [facility] (07/31/2012 11:45:00) URINALYSIS UA 0.2 EU/dL 0.1 - 1.0 07/31 Normal [facility] Urobilinogen /2012 URINALYSIS UA Nitrite Negative Negative [...] Number For Provider Date Date Visit Outpatient [id number] RE-SHANDA PERALTA 07/31 07/31 Active [facility] /2012 Outpatient [id number] F/U FABIAN 08/30 Active [facility] Outpatient [id number] FABIAN 11/15 Active [facility] Outpatient [id number] Tai 05/02 05/03 [facility] DiTommaso /2017 [facility] Outpatient [id number] FABIAN Active [facility] Procedures Procedure Code Date Perfomer Comments Source Hard X-rays [id number] [facility] Hard X-rays [id number] [facility]
--- OUTSIDE RECORDS SUMMARY | 2018-07-23 08:37 | XMS REPORT | CCD ---
:1930 Author Organization [facility] Team Providers Name Role Phone Abdullahi [...]
--- OUTSIDE RECORDS SUMMARY | 2018-07-23 08:37 | XMS REPORT | CCD ---
:1930 Author Organization [facility] Team Providers Name Role Phone Abdullahi Morrow [...]
--- OUTSIDE RECORDS SUMMARY | 2018-07-23 08:37 | XMS REPORT | CCD ---
:1930 Author Organization [facility] Team Providers Name Role Phone [...]
--- OUTSIDE RECORDS SUMMARY | 2018-07-23 08:37 | XMS REPORT | CCD ---
:1930 Author Organization [facility] Team Providers Name Role Phone Abdullahi [...]
--- OUTSIDE RECORDS SUMMARY | 2018-07-23 08:37 | XMS REPORT | CCD ---
:1930 Author Organization [facility] Team Providers Name Role Phone Abdullahi Morrow [...]
--- OUTSIDE RECORDS SUMMARY | 2018-07-23 08:37 | XMS REPORT | CCD ---
:1930 Author Organization [facility] Team Providers Name Role Phone Abdullahi [...]
--- OUTSIDE RECORDS SUMMARY | 2018-07-23 08:37 | XMS REPORT | CCD ---
:1930 Author Organization [facility] Team Providers Name Role Phone Abdullahi [...]
[2018-07-23] MEDS ORDERED: LEVALBUTEROL 1.25 MG/3 ML NEB ONE (09:34)
[2018-07-23] MEDS ORDERED: predniSONE 20 MG TAB ONE (09:34)
[2018-07-23 09:46] LABS: Absolute Lymphocytes (CBC) 0.6 K/uL (0.7-4.9); Absolute Monocytes 0.5 K/uL (0.1-1.3); Absolute Neutrophil 6.7 K/uL (1.8-8.0); Basophils % 0.5 % (0-1.3); Eosinophils % 0.3 % (0-4.4); Hematocrit 38.7 % (36.0-45.0); Lymphocytes % 7.3 % (15.3-44.8); MPV 9.9 fL (7.6-11.3); RBC Red Blood Cell Count 4.13 M/uL (3.86-4.86)
[2018-07-23 09:57] LABS: Potassium 4.2 mmol/L (3.5-5.1)
[2018-07-23] MEDS ORDERED: METHYLPREDNISOLONE 125 MG INJ ONE (10:14)
--- NOTE | 2018-07-23 10:19 | ER ---
Nurse's Notes [facility] Name: Joselyn Lomeli Age: 87 yrs Sex: Female : 1930 Arrival Date: 07/23/2018 Time: 08:35 Bed 4 Private MD: Sharron Desir H Diagnosis: Chronic obstructive pulmonary disease with (acute) exacerbation Presentation: 07/23 08:53 Presenting complaint: Patient states: increased difficulty breathing and productive iw cough X 2-3 days, fever yesterday but not today, also c/o fatigue, hx of COPD, denies chest pain. Transition of care: patient was not received from another setting of care. Onset of symptoms was July 21, 2018. Risk Assessment: Do you want to hurt yourself or someone else? Patient reports no desire to harm self or others. Initial Sepsis Screen: Does the patient meet any 2 criteria? No. Patient's initial sepsis screen is negative. Does the patient have a suspected source of infection? No. Patient's initial sepsis screen is negative. Care prior to arrival: None. 08:53 Method Of Arrival: Wheelchair iw 08:53 Acuity: AZAR 3 iw Historical: - Allergies: 08:56 Bactrim; iw 08:56 Demerol; iw 08:56 Iodine; iw 08:56 Sulfa (Sulfonamide Antibiotics); iw - Home Meds: 08:56 aspirin 81 mg Oral TbEC 1 tab three times a week [Active]; Diovan 320 mg Oral tab 1 tab iw once daily [Active]; - PMHx: 08:56 COPD; diptheria; esophageal pouch; hiatal hernia; Hypertension; Irregular heart rate; iw Polio; - PSHx: 08:56 Appendectomy; Hysterectomy; cardiac ablation; iw - Immunization history:: Adult Immunizations not up to date. - Social history:: Smoking status: Patient/guardian denies using tobacco. - Ebola Screening: : Patient negative for fever greater than or equal to 101.5 degrees Fahrenheit, and additional compatible Ebola Virus Disease symptoms Patient denies exposure to infectious person Patient denies travel to an Ebola-affected area in the 21 days before illness onset No symptoms or risks identified at this time. Screenin:23 Abuse screen: Denies threats or abuse. Denies injuries from another. Nutritional hb screening: No deficits noted. Tuberculosis screening: No symptoms or risk factors identified. Fall Risk Total Ramires Fall Scale indicates Low Risk Score (25-44 pts). Fall prevention measures have been instituted. Side Rails Up X 2 Frequent Obs/Assesments occuring Family Present and informed to notify staff if they need to leave bedside As available Patient and Family Educated on Fall Prevention Program and strategies. Assessment: 09:30 General: Appears in no apparent distress. Behavior is calm, cooperative. Pain: Denies hb pain. Neuro: Level of Consciousness is awake, alert, obeys commands, Oriented to person, place, time, situation. Cardiovascular: Heart tones S1 S2 present Capillary refill < 3 seconds Patient's skin is warm and dry. Respiratory: Airway is patent Respiratory effort is mildly labored Respiratory pattern is tachypnea Breath sounds are diminished bilaterally. Breath sounds with rhonchi. GI: No signs and/or symptoms were reported involving the gastrointestinal system. : No signs and/or symptoms were reported regarding the genitourinary system. EENT: No signs and/or symptoms were reported regarding the EENT system. Derm: Skin is intact, is healthy with good turgor, Skin is pink, warm \T\ dry. Musculoskeletal: No signs and/or symptoms reported regarding the musculoskeletal system. 10:20 Reassessment: Patient appears in no apparent distress at this time. Patient and/or hb family updated on plan of care and expected duration. Pain level reassessed. Vital Signs: 08:56 BP 152 / 68; Pulse 90; Resp 24 S; Temp 98.0(O); Pulse Ox 97% on R/A; Pain 0/10; iw 09:45 BP 137 / 63; Pulse 81; Resp 27; Pulse Ox 99% on Nebulizer Mask; Pain 0/10; hb ED Course: 08:35 Patient arrived in ED. as 08:35 Sharron Desir DO is Private Physician. as 08:55 Triage completed. iw 08:56 Rufino Garcia PA is PHCP. jr8 08:56 Dano Tolbert MD is Attending Physician. jr8 08:56 Arm band placed on. iw 09:23 Mary Andres, RN is Primary Nurse. hb 09:24 Patient has correct armband on for positive identification. Bed in low position. Call hb light in reach. Side rails up X2. equipment monitor phototypesetting on. Pulse ox on. NIBP on. 09:30 X-ray completed. Portable x-ray completed in exam room. Patient tolerated procedure kw well. 09:33 XRAY Chest (1 view) In Process Unspecified. EDMS 09:38 EKG done, by ED staff, reviewed by Rufino MELGAR. em1 09:38 Inserted saline lock: 22 gauge in right forearm, using aseptic technique. Blood hb collected. 09:51 Basic Metabolic Panel Sent. hb 10:20 No provider procedures requiring assistance completed. hb Administered Medications: 09:39 Not Given (Physician Discretion): predniSONE 60 mg PO once jr8 09:41 Drug: Xopenex 1.25 mg Route: Inhalation; hb 10:02 Drug: SOLU-Medrol 125 mg Route: IVP; Site: right forearm; hb Outcome: 10:19 Discharge ordered by . jr8 11:02 Patient left the ED. iw Signatures: Dispatcher [employer] Nolvia Askew Irene, RN RN iw Marcellus French em1 Manisha Zee Josh, PA PA jr8 Mary Andres, CRISTA RN hb
--- NOTE | 2018-07-23 10:19 | EDPHYS ---
Physician Documentation [facility] Name: Joselyn Lomeli Age: 87 yrs Sex: Female : 1930 Arrival Date: 07/23/2018 Time: 08:35 Bed 4 Private MD: Sharron Desir H ED Physician Dano Tolbert HPI: 07/23 09:54 This 87 yrs old Female presents to ER via Wheelchair with complaints of COPD jr8 Exacerbation. 09:54 Onset: The symptoms/episode began/occurred gradually, 2 day(s) ago. Associated signs jr8 and symptoms: Pertinent positives: cough. Modifying factors: The patient symptoms are alleviated by nothing, the patient symptoms are aggravated by nothing. It is unknown whether or not the patient has had similar symptoms in the past. The patient has not recently seen a physician. History of COPD. Stated that she has had increased cough over the past couple of days. Denies fevers or other complaints. Historical: - Allergies: 08:56 Bactrim; iw 08:56 Demerol; iw 08:56 Iodine; iw 08:56 Sulfa (Sulfonamide Antibiotics); iw - Home Meds: 08:56 aspirin 81 mg Oral TbEC 1 tab three times a week [Active]; Diovan 320 mg Oral tab 1 tab iw once daily [Active]; - PMHx: 08:56 COPD; diptheria; esophageal pouch; hiatal hernia; Hypertension; Irregular heart rate; iw Polio; - PSHx: 08:56 Appendectomy; Hysterectomy; cardiac ablation; iw - Immunization history:: Adult Immunizations not up to date. - Social history:: Smoking status: Patient/guardian denies using tobacco. - Ebola Screening: : Patient negative for fever greater than or equal to 101.5 degrees Fahrenheit, and additional compatible Ebola Virus Disease symptoms Patient denies exposure to infectious person Patient denies travel to an Ebola-affected area in the 21 days before illness onset No symptoms or risks identified at this time. ROS: 09:54 Eyes: Negative for injury, pain, redness, and discharge, ENT: Negative for injury, jr8 pain, and discharge, Neck: Negative for injury, pain, and swelling, Cardiovascular: Negative for chest pain, palpitations, and edema, Abdomen/GI: Negative for abdominal pain, nausea, vomiting, diarrhea, and constipation, Back: Negative for injury and pain, MS/Extremity: Negative for injury and deformity, Skin: Negative for injury, rash, and discoloration, Neuro: Negative for headache, weakness, numbness, tingling, and seizure. 09:54 Respiratory: Positive for cough, shortness of breath, Negative for dyspnea on exertion, sputum production, wheezing. Exam: 09:54 Eyes: Pupils equal round and reactive to light, extra-ocular motions intact. Lids and jr8 lashes normal. Conjunctiva and sclera are non-icteric and not injected. Cornea within normal limits. Periorbital areas with no swelling, redness, or edema. ENT: Nares patent. No nasal discharge, no septal abnormalities noted. Tympanic membranes are normal and external auditory canals are clear. Oropharynx with no redness, swelling, or masses, exudates, or evidence of obstruction, uvula midline. Mucous membranes moist. Neck: Trachea midline, no thyromegaly or masses palpated, and no cervical lymphadenopathy. Supple, full range of motion without nuchal rigidity, or vertebral point tenderness. No Meningismus. Cardiovascular: Regular rate and rhythm with a normal S1 and S2. No gallops, murmurs, or rubs. Normal PMI, no JVD. No pulse deficits. Abdomen/GI: Soft, non-tender, with normal bowel sounds. No distension or tympany. No guarding or rebound. No evidence of tenderness throughout. Back: No spinal tenderness. No costovertebral tenderness. Full range of motion. Skin: Warm, dry with normal turgor. Normal color with no rashes, no lesions, and no evidence of cellulitis. MS/ Extremity: Pulses equal, no cyanosis. Neurovascular intact. Full, normal range of motion. Neuro: Awake and alert, GCS 15, oriented to person, place, time, and situation. Cranial nerves II-XII grossly intact. Motor strength 5/5 in all extremities. Sensory grossly intact. Cerebellar exam normal. Normal gait. 09:54 Respiratory: the patient does not display signs of respiratory distress, Respirations: normal, symetrical, no use of accessory muscles, no grunting, no evidence of nasal flaring, no appreciated paradoxical movements, no prolonged exhalations, no pursed lip breathing, no retractions, no shallow respirations, no splinting, no tachypnea, Breath sounds: rhonchi, that are mild, are heard diffusely. Vital Signs: 08:56 BP 152 / 68; Pulse 90; Resp 24 S; Temp 98.0(O); Pulse Ox 97% on R/A; Pain 0/10; iw 09:45 BP 137 / 63; Pulse 81; Resp 27; Pulse Ox 99% on Nebulizer Mask; Pain 0/10; hb MDM: 09:11 Patient medically screened. [facility] 10:02 Data reviewed: vital signs, nurses notes, lab test result(s), EKG, radiologic studies, jr plain films, and as a result, I will discharge patient. Data interpreted: Pulse oximetry: on room air is 97 %. Interpretation: normal. Counseling: I had a detailed discussion with the patient and/or guardian regarding: the historical points, exam findings, and any diagnostic results supporting the discharge/admit diagnosis, lab results, radiology results, the need for outpatient follow up, a family practitioner, to return to the emergency department if symptoms worsen or persist or if there are any questions or concerns that arise at home. Response to treatment: the patient's symptoms have markedly improved after treatment. 07/23 09:14 Order name: Basic Metabolic Panel [facility] 07/23 09:14 Order name: CBC with Diff 07/23 09:14 Order name: XRAY Chest (1 view); Complete Time: 10:40 07/23 09:15 Order name: Basic Metabolic Panel; Complete Time: 10:03 EDMS 07/23 09:14 Order name: EKG; Complete Time: 09:16 [facility] 07/23 09:14 Order name: Cardiac monitoring; Complete Time: 09:38 07/23 09:14 Order name: EKG - Nurse/Tech; Complete Time: 09:38 07/23 09:14 Order name: IV Saline Lock; Complete Time: 09:42 07/23 09:14 Order name: Labs collected and sent; Complete Time: :42 [facility] 07/23 09:14 Order name: O2 Per Protocol; Complete Time: 09:42 07/23 09:14 Order name: O2 Sat Monitoring; Complete Time: 09:42 [facility] Administered Medications: 09:39 Not Given (Physician Discretion): predniSONE 60 mg PO once jr8 09:41 Drug: Xopenex 1.25 mg Route: Inhalation; hb 10:02 Drug: SOLU-Medrol 125 mg Route: IVP; Site: right forearm; Disposition: 13:42 Co-signature as Attending Physician, Dano Tolbert MD. Disposition: 07/23/18 10:19 Discharged to Home. Impression: Chronic obstructive pulmonary disease with (acute) exacerbation. - Condition is Stable. - Discharge Instructions: Chronic Bronchitis. - Prescriptions for prednisolone 15 mg/5 mL Oral Solution - take 10 milliliter by ORAL route 2 times per day for 5 days with food; 100 milliliter. Guaifenesin AC 10- 100 mg/5 mL Oral Liquid - take 10 milliliter by ORAL route every 4 hours As needed; 240 milliliter. - Medication Reconciliation Form, Thank You Letter, Antibiotic Education, Prescription Opioid Use form. - Follow up: Private Physician; When: 5 - 6 days; Reason: Recheck today's complaints, Continuance of care, Re-evaluation by your physician. - Problem is new. - Symptoms have improved. Signatures: Dispatcher [employer] EDMaite Mendoza RN RN Rufino Garcia PA PA jr8 Mary Andres RN RN Dano Tolbert MD MD Corrections: (The following items were deleted from the chart) 11:02 10:19 07/23/2018 10:19 Discharged to Home. Impression: Chronic obstructive pulmonary iw disease with (acute) exacerbation. Condition is Stable. Forms are Medication Reconciliation Form, Thank You Letter, Antibiotic Education, Prescription Opioid Use. Follow up: Private Physician; When: 5 - 6 days; Reason: Recheck today's complaints, Continuance of care, Re-evaluation by your physician. Problem is new. Symptoms have improved. jr8
--- NOTE | 2018-07-23 10:22 | RAD REPORT ---
EXAM DESCRIPTION: [place] Single View07/23/2018 9:33 am CLINICAL HISTORY: Cough COMPARISON: June 2017 FINDINGS: Mild bibasilar bronchiectasis The lungs appear clear of acute infiltrate. The heart is normal size IMPRESSION: No acute abnormalities displayed
[2018-07-23 13:26] LABS: Blood Morphology Comment NOT SEEN (NOT SEEN); Platelet Estimate ADEQ; Urine White Blood Cell Casts OK
--- NOTE | 2018-07-23 20:49 | EKG ---
Test Date: 2018-07-23 Test Time: 09:34:20 Mobile Engineer: SHERRON MEASUREMENT RESULTS: Intervals: Rate: 74 ME: 254 QRSD: 74 QT: 352 QTc: 390 [place]: P: 91 ME: 254 QRS: -8 T: 51 INTERPRETIVE STATEMENTS: Sinus rhythm with second degree AV block type I Abnormal ECG Compared to ECG 06/24/2017 10:52:16 Second degree AV block is now present Electronically Signed On 07-23-18 20:49:04 CDT by Diomedes Wright
== END 2018-07-23 11:02 | disposition home or self-care (01) ==
LOC: ER 08:34
DX: J44.1 Chronic obstructive pulmonary disease with (acute) exacerbation (principal); I10 Essential (primary) hypertension; Z79.82 Long term (current) use of aspirin; Z88.1 Allergy status to other antibiotic agents; Z88.2 Allergy status to sulfonamides; Z88.5 Allergy status to narcotic agent; Z91.048 Other nonmedicinal substance allergy status
CPT/HCPCS: 93005; 85025; 80048; 36415; 71045; 96374; 99285; J2930; J7512

== ENCOUNTER 2019-03-26 12:23 | Emergency (ER) | payer OTHER ==
--- OUTSIDE RECORDS SUMMARY | 2019-03-26 12:27 | XMS REPORT ---
:1930 [facility] [address] [place]. [address] [place] [id number] Care Team Providers Name Role Phone Unavailable Unavailable Unavailable Problems This patient has no known problems. Allergies, Adverse Reactions, Alerts This patient has no known allergies or adverse reactions. Medications This patient has no known medications.
--- OUTSIDE RECORDS SUMMARY | 2019-03-26 12:27 | XMS REPORT | Summary of Care ---
:1930 Author Organization [facility] - Health Address [address] [place], [place] [id number] Care Team Providers Name Role Phone Pcp, Patient Does Not Have A Primary Care Provider Encounter Details Date Type Department Care Team Description 10/24/2018 Orders Only [facility] Doctor Unassigned, No [address] [facility] Name [place] [id number] Allergies Active Allergy Reactions Severity Noted Date Comments Ciprofloxacin Shortness of Breath 04/12/2018 Iodine Unknown - See comments 11/20/2016 Nitrofurantoin Monohyd/M-Cryst Unknown - See comments 04/12/2018 Nsaids (Non-Steroidal Unknown - See comments 11/20/2016 Anti-Inflammatory Drug) Pyrazoles Unknown - See comments 11/20/2016 Salicylates Unknown - See comments 11/20/2016 Sulfa (Sulfonamide Antibiotics) Unknown - See comments 11/20/2016 Sulfonylureas Unknown - See comments 11/20/2016 Tetracyclines Unknown - See comments 11/20/2016 documented as of this encounter (statuses as of 10/24/2018) Medications Medication Sig Dispensed Refills Start Date End Date Status valsartan (DIOVAN) 320 Take 320 mg by 0 Active mg tablet mouth daily. aspirin 81 mg chewable Take 81 mg by 0 Active tablet mouth daily. Nitrofurantoin&Nit. Take 1 capsule by 20 capsule 0 04/12/2018 Active Macrocryst (MACROBID) mouth 2 (two) 100 mg times daily with capsuleIndications: meals. Recurrent UTI amoxicillin-pot Take 1 tablet by 20 tablet 0 08/30/2018 Active clavulanate 500 mg mouth 2 (two) 500-125 mg times daily. tabletIndications: Recurrent UTI documented as of this encounter (statuses as of 10/24/2018) Active Problems No known active problemsdocumented as of this encounter (statuses as of 2018) Social History Tobacco Use Types Packs/Day Years Used Date Never Smoker Smokeless Tobacco: Never Used Alcohol Use Drinks/Week oz/Week Comments No Sex Assigned at Date Recorded Not on file Job Start Date Occupation Industry Not on file Not on file Not on file Travel History Travel Start Travel End No recent travel history available. documented as of this encounter Last Filed Vital Signs Not on filedocumented in this encounter Plan of Treatment Date Type Specialty Care Team Description 10/24/2018 Office Visit Urology Ngco Connell, [employer] [address] [place] [id number] Health Maintenance Due Date Last Done Comments DTaP,Tdap,and Td Vaccines (1 - Tdap) 1949 Zoster Recombinant Vaccine (SHINGRIX) (1 of 2) 1980 Medicare Wellness Visit 08/04/1995 Osteoporosis Screening 08/04/1995 PNEUMOCOCCAL VACCINES 65+ (1 of 2 - PCV13) 08/04/1995 INFLUENZA VACCINE (#1) 2018 documented as of this encounter Procedures Procedure Name Priority Date/Time Associated Diagnosis Comments ASSIGNMENT OF BENEFITS Routine 10/24/2018 9:43 AM CDT documented in this encounter Results Not on filedocumented in this encounter Insurance Payer Benefit Plan / Subscriber ID Effective Dates Phone Address Type Group MEDICARE MEDICARE PART A xxxxxxxxxxx 1995-Shadia [phone] [id number] [place] [id number] [employer] AETNA INDEMNITY [id number] 2013-Shadia flores documented as of this encounter
--- OUTSIDE RECORDS SUMMARY | 2019-03-26 12:27 | XMS REPORT | Summary of Care ---
:1930 Author Organization [facility] - Health Address [address] [place] [address] Care Team Providers Name Role Phone Pcp, Patient Does Not Have A Primary Care Provider Reason for Visit Reason Comments Follow-up recurrent uti Encounter Details Date Type Department Care Team Description 10/24/2018 Office Visit [facility] Urology- Ngoc Connell, Recurrent UTI [place] HEALTH CARE ADMINISTRATOR (Primary Dx) [address] [place] [phone] [place], [place] [id number] Allergies Active Allergy Reactions Severity Noted Date [...] of this encounter Last Filed Vital Signs Vital Sign Reading Time Taken Comments Blood Pressure 144/80 10/24/2018 10:05 AM CDT Pulse 80 10/24/2018 10:05 AM CDT Temperature 36.8 C (98.2 F) 10/24/2018 10:05 AM CDT Respiratory Rate 18 10/24/2018 10:05 AM CDT Oxygen Saturation - - Inhaled Oxygen Concentration - - Weight 54 kg (119 lb) 10/24/2018 10:05 AM CDT Height 167.6 cm (5' 6") 10/24/2018 10:05 AM CDT Body Mass Index 19.21 10/24/2018 10:05 AM CDT documented in this encounter Progress Notes Ngoc Connell FNP - 10/24/2018 9:45 AM CDT Visit Type: Clinic Note / History and Physical Referred by: established Chief Complaint: 6 month follow up HPI Joselyn Soni 88 year old female for 6 month follow up of recurrent UTI. She is here with her son. She has not had a UTI since August 2017. Denies burning, frequency, urgency, fever or chills. She is asymptomatic today. Histories Past Medical History: Diagnosis Date Arthritis COPD (chronic obstructive pulmonary disease) Diphtheria Diverticulitis Esophageal reflux Hypertension Irregular heartbeat Kidney stone Osteoporosis UTI (urinary tract infection) Past Surgical History: Procedure Laterality Date HB CATH ABLATION - AV NODE HYSTERECTOMY OPEN BLADDER SUSPENSION TUBAL LIGATION Family History Problem Relation Age of Onset Cancer Mother Breast Stroke Father Social History Socioeconomic History Marital status: Spouse name: Not on file Number of children: Not on file Years of education: Not on file Highest education level: Not on file Occupational History Not on file Social Needs Financial resource strain: Not on file Food insecurity: Worry: Not on file Inability: Not on file Transportation needs: Medical: Not on file Non-medical: Not on file Tobacco Use Smoking status: Never Smoker Smokeless tobacco: Never Used Substance and Sexual Activity Alcohol use: No Drug use: Not on file Sexual activity: Not on file Lifestyle Physical activity: Days per week: Not on file Minutes per session: Not on file Stress: Not on file Relationships Social connections: Talks on phone: Not on file Gets together: Not on file Attends amish service: Not on file Active member of club or organization: Not on file Attends meetings of clubs or organizations: Not on file Relationship status: Not on file Intimate partner violence: Fear of current or ex partner: Not on file Emotionally abused: Not on file Physically abused: Not on file Forced sexual activity: Not on file Other Topics Concern Not on file Social History Narrative Not on file Review of Systems Constitutional: Negative. Respiratory: Negative. Cardiovascular: Negative. Genitourinary: Negative. Musculoskeletal: Positive for gait problem. Psychiatric/Behavioral: Negative. Physical Exam Constitutional: She is oriented to person, place, and time. She appears well- developed and well-nourished. No distress. Musculoskeletal: Uses wheelchair to for long distances. Ambulates at home. Neurological: She is alert and oriented to person, place, and time. Skin: Skin is warm and dry. Psychiatric: She has a normal mood and affect. BP (!) 144/80 (BP Location: Right arm, Patient Position: Sitting, BP CUFF SIZE: Adult Large) | Pulse 80 | Temp 36.8 C (98.2 F) (Oral) | Resp 18 | Ht 5' 6" (1.676 m) | Wt 119 lb (54 kg) | BMI 19.21 kg/m Laboratory Results for JOSELYN SONI ( ) as of 10/24/2018 10:30 Ref. Range 10/24/2018 10:09 POCT PH U Latest Ref Range: 5 - 8 mg/dl 6.5 POCT U SP GRAV Latest Ref Range: 1.005 - 1.025 mg/dl 1.020 POCT U GLU Latest Ref Range: Negative - Negative Negative POCT U BLD Latest Ref Range: Negative - Negative trace POCT U KETONE Latest Ref Range: Negative - Negative Negative POCT U PROT Latest Ref Range: Negative - Negative Trace POCT U UROBILI Latest Ref Range: 0.2 - 1 mg/dl 1.0 POCT U BILI Latest Ref Range: Negative - Negative Negative POCT U NIT Latest Ref Range: Negative - Negative positive POCT U LEUK EST Latest Ref Range: Negative - Negative Large POCT U COLOR Unknown dark yellow POCT U APPEAR Unknown cloudy Radiology No new Radiology Procedure Note None Assessment/Plan Joselyn Soni 88 year old female with recurrent UTI. Asymptomatic today. Urine culture - today will call with results Will call when symptoms begin for urine culture orders Return to clinic in 6 months or sooner if needed Surgical Intervention Not applicable. This visit did not involve counseling and coordination that comprised more than 50% of the visit time.Electronically signed by Ngoc Connell FNP at 2018 10:32 AM Blanca Tamayo RN - 10/24/2018 9:45 AM KIRBYradames Soni is a 88 year old female comes to clinic with assistive device; wheelchair forrecurrent uti. Pt comes accompanied by son . Pt in NAD w/ pain reported 0/10. Pt preferred language is Cambodian. Pt. denies fall in last 12 months. Allergies and medications reviewed and updated. Ldocumented in this encounter Plan of Treatment Date Type Specialty Care Team Description 04/24/2019 Office Visit Urology Ngoc Connell FNP [address] [id number] Name Type Priority Associated Diagnoses Order Schedule URINE CULTURE LAB Routine Recurrent UTI Ordered: 10/24/2018 Health Maintenance Due Date Last Done Comments DTaP,Tdap,and Td Vaccines (1 - Tdap) 1949 Zoster Recombinant Vaccine (SHINGRIX) (1 of 2) 1980 Medicare Wellness Visit 08/04/1995 Osteoporosis Screening 08/04/1995 PNEUMOCOCCAL VACCINES 65+ (1 of 2 - PCV13) 08/04/1995 INFLUENZA VACCINE (#1) 2018 documented as of this encounter Procedures Procedure Name Priority Date/Time Associated Comments Diagnosis POCT URINALYSIS AUTO Routine 10/24/2018 10:09 AM Recurrent UTI Results for this CDT procedure are in the results section. documented in this encounter Results POCT URINALYSIS, INSTRUMENT (10/24/2018 10:09 AM CDT) POCT U SP GRAV 1.020 1.005 - 1.025 mg/dl POCT PH U 6.5 5 - 8 mg/dl POCT U LEUK EST Large Negative - Negative POCT U NIT positive Negative - Negative POCT U PROT Trace Negative - Negative POCT U GLU Negative Negative - Negative POCT U KETONE Negative Negative - Negative POCT U UROBILI 1.0 0.2 - 1 mg/dl POCT U BILI Negative Negative - Negative POCT U BLD trace Negative - Negative POCT U COLOR dark yellow POCT U APPEAR cloudy Specimen Urine - URINE, CLEAN CATCH documented in this encounter Visit Diagnoses Diagnosis Recurrent UTI - Primary Urinary tract infection, site not specified documented in this encounter Insurance Payer Benefit Plan / Subscriber ID Effective Dates Phone Address Type Group MEDICARE MEDICARE PART A xxxxxxxxxxx 1995-Shadia [phone] Medicare & B t 82 [id number] [place] [id number] A[employer]NA AETNA INDEMNITY [id number] 2013-Shadia Indembandarty t [address] ([address] [place] [address] documented as of this encounter
--- OUTSIDE RECORDS SUMMARY | 2019-03-26 12:27 | XMS REPORT | Summary of Care ---
:1930 Author Organization [facility] - Health Address [address] [place] [address] Care Team Providers Name Role Phone Pcp, Patient Does Not Have A Primary Care Provider Reason for Visit Reason Comments Follow-up recurrent uti Encounter Details Date Type Department Care Team Description 10/24/2018 Office Visit [facility] Urology- Ngoc Connell, Recurrent UTI [place] BUSINESS ANALYTICS MANAGER (Primary Dx) [address] [place] [phone] [place], [place] [address] Allergies Active Allergy Reactions Severity Noted Date [...] file Gets together: Not on file Attends protestant service: Not on file Active member of [...] pain reported 0/10. Pt preferred language is Austrian. Pt. denies fall in last 12 months. Allergies and medications reviewed and updated. Ldocumented in this encounter Plan of Treatment Date Type Specialty Care Team Description 04/24/2019 Office Visit Urology Ngoc Connell FNP [address] [id number] Name Type Priority Associated Diagnoses Order Schedule [...] [address] Medicare & B t 82 [id number] [place] [phone] AETNA AETNA INDEMNITY [id number] 2013-Shadia Indembandarty t [address] ([address]) [place] [address] documented as of this encounter
--- OUTSIDE RECORDS SUMMARY | 2019-03-26 12:28 | XMS REPORT | Summary of Care ---
:1930 Author Organization [facility] - Health Address [address] [place] [address] Care Team Providers Name Role Phone Pcp, Patient Does Not Have A Primary Care Provider Reason for Visit Reason Comments Results Encounter Details Date Type Department Care Team Description 02/27/2019 Telephone [facility] Urology- Ngoc Connell FNP Results [place] [address] [facility] [address] [facility] [address] [place] [address] [place] [phone] Allergies Active Allergy Reactions Severity Noted Date [...] as of this encounter (statuses as of 02/27/2019) Medications Medication Sig Dispensed Refills Start Date [...] as of this encounter (statuses as of 02/27/2019) Active Problems No known active problemsdocumented as of this encounter (statuses as of 2019) Social History Tobacco Use Types Packs/Day Years [...] Team Description 04/24/2019 Office Visit Urology Ngoc Connell, GUIDANCE COUNSELOR [address] [address] [phone] Health Maintenance Due Date Last Done Comments DTaP,Tdap,and Td Vaccines (1 - Tdap) 1941 Zoster Recombinant Vaccine (SHINGRIX) (1 of 2) 1980 Medicare Wellness Visit 08/04/1995 Osteoporosis Screening 08/04/1995 PNEUMOCOCCAL VACCINES 65+ (1 of 2 - PCV13) 08/04/1995 INFLUENZA VACCINE (#1) 2018 documented as of this encounter Results Not on filedocumented in this encounter Insurance Payer Benefit Plan / Subscriber ID Effective Dates Phone Address Type Group MEDICARE MEDICARE PART A xxxxxxxxxxx 1995-Shadia [phone] Medicare & B t 82 [id number] [place] [id number] AETNA AETNA INDEMNITY [id number] 2013-Prescandace Indemnity t documented as of this encounter
--- OUTSIDE RECORDS SUMMARY | 2019-03-26 12:28 | XMS REPORT | Summary of Care ---
:[address] [facility] - Health Address [address] [place] [address] Care Team Providers Name Role Phone Pcp, Patient Does Not Have A Primary Care Provider Reason for Visit Reason Comments Results Encounter Details Date Type Department Care Team Description 10/27/2018 Telephone [facility] Urology- Ngoc Connell FNP Results [place] [address] [facility] [address] [facility] [address] [place] [address] [place] [phone] Allergies Active Allergy Reactions Severity Noted Date [...] as of this encounter (statuses as of 10/27/2018) Medications Medication Sig Dispensed Refills Start Date [...] as of this encounter (statuses as of 10/27/2018) Active Problems No known active problemsdocumented as [...] Treatment Date Type Specialty Care Team Description 10/31/2018 Nurse Visit Urology Nurse, [facility] 04/24/2019 Office Visit Urology Ngoc Connell, INFORMATICS PHYSICIAN LIAISON [address] [id number] Health Maintenance Due Date Last Done Comments [...] [address] Medicare & B t 82 [id number] [place] [phone] AETNA AETNA INDEMNITY [id number] 2013-Presen Indemnity t documented as of this encounter
--- OUTSIDE RECORDS SUMMARY | 2019-03-26 12:28 | XMS REPORT | Summary of Care ---
:1930 Author Organization [facility] - Health Address [address] [place] [address] Care Team Providers Name Role Phone Pcp, Patient Does Not Have A Primary Care Provider Reason for Visit Reason Comments LAB WORK Auth/Cert Status Reason Specialty Diagnoses / Procedures Referred By Contact Referred To Contact Phlebotomy Procedures Adc Pob Lab Draw [facility] Professional Office Building [address] [facility] , [address] [place] [address] Encounter Details Date Type Department Care Team Description 02/23/2019 Department Clerk Visit [facility] Health Professional Ko, VALERIO Tay [address] [address] Recurrent UTI Office Building Pob, Adc Lab Main Phlebotomy Lab Professional Office Building [address] [place] [address] , [address] [place] [address] Allergies Active Allergy Reactions Severity Noted Date [...] as of this encounter (statuses as of 02/23/2019) Medications Medication Sig Dispensed Refills Start Date [...] as of this encounter (statuses as of 02/23/2019) Active Problems No known active problemsdocumented as [...] Description 04/24/2019 Office Visit Urology Ngoc Connell, VALERIO [address] [place] [address] [phone] Name Type Priority Associated Diagnoses Date/Time URINE CULTURE LAB Routine Recurrent UTI 02/23/2019 10:42 AM [facility] Health Maintenance Due Date Last Done Comments DTaP,Tdap,and Td Vaccines (1 - Tdap) 1941 Zoster Recombinant Vaccine (SHINGRIX) (1 of 2) 1980 Medicare Wellness Visit 08/04/1995 Osteoporosis Screening 08/04/1995 PNEUMOCOCCAL VACCINES 65+ (1 of 2 - PCV13) 08/04/1995 INFLUENZA VACCINE (#1) 2018 documented as of this encounter Results Not on filedocumented in this encounter Visit Diagnoses Diagnosis Recurrent UTI Urinary tract infection, site not specified documented in this encounter Insurance Payer Benefit Plan / Subscriber ID Effective Dates Phone Address Type Group MEDICARE MEDICARE PART A xxxxxxxxxxx 1995-Shadia [phone] Medicare & B t 82 [id number] [place] [id number] AETNA AETNA INDEMNITY [id number] 2013-Shadia flores documented as of this encounter
--- NOTE | 2019-03-26 13:47 | RAD REPORT ---
EXAM DESCRIPTION: CT - Pelvis Wo Cont - 03/26/2019 1:33 pm CLINICAL HISTORY: Pelvic pain status post fall COMPARISON: None. TECHNIQUE: Computed axial tomography of the pelvis was obtained. Coronal and sagittal reconstruction performed All CT scans are performed using dose optimization technique as appropriate and may include automated exposure control or mA/KV adjustment according to patient size. FINDINGS: The bones are osteoporotic. No fracture or dislocation is seen. Mild osteoarthritis involves the hips Muscles are normal size and density. A subcutaneous contusion is not noted IMPRESSION: No fracture seen
--- NOTE | 2019-03-26 13:51 | RAD REPORT ---
EXAM DESCRIPTION: CTThoracic Spine W/o Cont03/26/2019 1:33 pm CLINICAL HISTORY: Back injury with Back pain status post fall COMPARISON: CT cervical spine 2016 TECHNIQUE: Computed axial tomography of thoracic spine was obtained with coronal and sagittal recons truction. All CT scans are performed using dose optimization technique as appropriate and may include automated exposure control or mA/KV adjustment according to patient size. FINDINGS: Moderate old compression fracture involves the T2 vertebral body. There is no retropulsion of fracture fragments. No acute fracture of the thoracic spine Kyphosis Osteoporosis. No dislocation High-grade central spinal stenosis is not noted IMPRESSION: No acute fracture seen. Patient continues have symptoms to suggest spinal cord/spinal ca nal pathology MRI would be recommended
--- NOTE | 2019-03-26 15:17 | EDPHYS ---
Physician Documentation [facility] Name: Joselyn Lomeli Age: 88 yrs Sex: Female : 1930 Arrival Date: 03/26/2019 Time: 12:26 Bed 17 Private MD: Sharron Desir H ED Physician Erik Maguire HPI: 03/26 21:02 This 88 yrs old Female presents to ER via Wheelchair with complaints of Fall tw4 Injury. 21:02 Details of fall: The patient fell from an upright position. Onset: The symptoms/episode tw4 began/occurred 1 week(s) ago. Associated injuries: The patient sustained upper back injury, contusion. Severity of symptoms: At their worst the symptoms were moderate, in the emergency department the symptoms are unchanged. The patient has not experienced similar symptoms in the past. Historical: - Allergies: 12:42 Bactrim; hb 12:42 Demerol; hb 12:42 Iodine; hb 12:42 Sulfa (Sulfonamide Antibiotics); hb - Home Meds: 12:42 aspirin 81 mg Oral TbEC 1 tab three times a week [Active]; Diovan 320 mg Oral tab 1 tab hb once daily [Active]; - PMHx: 12:42 diptheria; esophageal pouch; hiatal hernia; Hypertension; Irregular heart rate; Polio; hb COPD; - PSHx: 12:42 Appendectomy; Hysterectomy; cardiac ablation; hb - Immunization history:: Adult Immunizations up to date. - Coronavirus screen:: The patient has NOT traveled to [place] in the past 14 days. The patient has NOT had contact with known/suspected case of Coronavirus? Proceed with normal triage procedures. - Social history:: Smoking status: Patient denies any tobacco usage or history of. - Ebola Screening: : No symptoms or risks identified at this time. ROS: 21:02 Constitutional: Negative for fever, chills, and weight loss, Eyes: Negative for injury, tw4 pain, redness, and discharge, Cardiovascular: Negative for chest pain, palpitations, and edema, Respiratory: Negative for shortness of breath, cough, wheezing, and pleuritic chest pain, Abdomen/GI: Negative for abdominal pain, nausea, vomiting, diarrhea, and constipation. 21:02 MS/Extremity: Negative for injury and deformity, Skin: Negative for injury, rash, and discoloration. 21:02 Back: Positive for pain at rest, pain with movement. Exam: 21:02 Constitutional: This is a well developed, well nourished patient who is awake, alert, tw4 and in no acute distress. Head/Face: Normocephalic, atraumatic. Eyes: Pupils equal round and reactive to light, extra-ocular motions intact. Lids and lashes normal. Conjunctiva and sclera are non-icteric and not injected. Cornea within normal limits. Periorbital areas with no swelling, redness, or edema. Chest/axilla: Normal chest wall appearance and motion. Nontender with no deformity. No lesions are appreciated. Cardiovascular: Regular rate and rhythm with a normal S1 and S2. No gallops, murmurs, or rubs. Normal PMI, no JVD. No pulse deficits. Respiratory: Lungs have equal breath sounds bilaterally, clear to auscultation and percussion. No rales, rhonchi or wheezes noted. No increased work of breathing, no retractions or nasal flaring. Abdomen/GI: Soft, non-tender, with normal bowel sounds. No distension or tympany. No guarding or rebound. No evidence of tenderness throughout. 21:02 Back: pain, ROM is normal. 21:07 Back: pain, that is mild, of the thoracic area. tw4 Vital Signs: 12:40 BP 168 / 85; Pulse 54; Resp 20; Temp 97.8; Pulse Ox 98% on R/A; Weight 53.52 kg; Height hb 5 ft. 6 in. (167.64 cm); Pain 5/10; 13:59 BP 168 / 70; Pulse 70; Resp 19 S; Pulse Ox 98% on R/A; ca1 14:32 BP 177 / 73; Pulse 69; Resp 16 S; Pulse Ox 97% on R/A; ca1 15:15 BP 178 / 73; Pulse 72; Resp 16 S; Pulse Ox 98% on R/A; ca1 12:40 Body Mass Index 19.05 (53.52 kg, 167.64 cm) hb MDM: 12:52 Patient medically screened. tw4 21:06 Differential diagnosis: abrasion, closed head injury, contusion. Data reviewed: vital tw4 signs, nurses notes. Data reviewed: radiologic studies, CT scan. Counseling: I had a detailed discussion with the patient and/or guardian regarding: the historical points, exam findings, and any diagnostic results supporting the discharge/admit diagnosis, radiology results. Special discussion: I discussed with the patient/guardian in detail that at this point there is no indication for admission to the hospital. It is understood, however, that if the symptoms persist or worsen the patient needs to return immediately for re-evaluation. 21:07 Data interpreted: Pulse oximetry: Interpretation: normal. tw4 03/26 13:12 Order name: CT Thoracic Spine Wo Cont tw4 03/26 13:12 Order name: CT Pelvis wo Cont tw4 Administered Medications: No medications were administered Disposition: 03/26/19 15:16 Discharged to Home. Impression: Contusion of left back wall of thorax, Contusion of lower back and pelvis, Other fracture of second thoracic vertebra. - Condition is Stable. - Discharge Instructions: Contusion, Vertebral Fracture, Contusion, [id number]. - Medication Reconciliation Form, Thank You Letter, Antibiotic Education, Prescription Opioid Use form. - Follow up: Sharron Desir DO; When: Upon discharge from the Emergency Department; Reason: If symptoms return, Recheck today's complaints, Continuance of care, Re-evaluation by your physician. - Problem is new. - Symptoms have improved. Signatures: Dispatcher [employer] EDMS Mary Andres, RN RN Erik Maguire MD MD tw4 Yuliya Vazquez RN RN ca1 Corrections: (The following items were deleted from the chart) 15:18 15:16 03/26/2019 15:16 Discharged to Home. Impression: Contusion of left back wall of tw4 thorax; Contusion of lower back and pelvis. Condition is Stable. Forms are Medication Reconciliation Form, Thank You Letter, Antibiotic Education, Prescription Opioid Use. Follow up: Sharron Desir; When: Upon discharge from the Emergency Department; Reason: If symptoms return, Recheck today's complaints, Continuance of care, Re-evaluation by your physician. Problem is new. Symptoms have improved. tw4 15:31 15:18 03/26/2019 15:16 Discharged to Home. Impression: Contusion of left back wall of ca1 thorax; Contusion of lower back and pelvis; Other fracture of second thoracic vertebra. Condition is Stable. Discharge Instructions: Contusion, Contusion, [id number]. Forms are Medication Reconciliation Form, Thank You Letter, Antibiotic Education, Prescription Opioid Use. Follow up: Sharron Desir; When: Upon discharge from the Emergency Department; Reason: If symptoms return, Recheck today's complaints, Continuance of care, Re-evaluation by your physician. Problem is new. Symptoms have improved. tw4
--- NOTE | 2019-03-26 15:17 | ER ---
Nurse's Notes [facility] Name: Joselyn Lomeli Age: 88 yrs Sex: Female : 1930 Arrival Date: 03/26/2019 Time: 12:26 Bed 17 [facility] MD: Sharron Desir H Diagnosis: Contusion of left back wall of thorax;Contusion of lower back and pelvis;Other fracture of second thoracic vertebra Presentation: 03/26 12:39 Presenting complaint: Left upper back pain after mechanical fall from standing 1 week hb ago. Care prior to arrival: None. 12:39 Acuity: AZAR 4 hb 12:39 Method Of Arrival: Wheelchair hb 12:54 Transition of care: patient was not received from another setting of care. Onset of ca1 symptoms was March 26, 2019. 12:54 Risk Assessment: Do you want to hurt yourself or someone else? Patient reports no ca1 desire to harm self or others. Initial Sepsis Screen: Does the patient meet any 2 criteria? No. Patient's initial sepsis screen is negative. Does the patient have a suspected source of infection? No. Patient's initial sepsis screen is negative. Trauma Activation: Not Applicable Physician: ED Physician; Name: ; Notified At: ; Arrived At: Physician: General Surgeon; Name: ; Notified At: ; Arrived At: Physician: Radiology; Name: ; Notified At: ; Arrived At: Physician: Respiratory; Name: ; Notified At: ; Arrived At: Physician: Lab; Name: ; Notified At: ; Arrived At: Historical: - Allergies: 12:42 Bactrim; hb 12:42 Demerol; hb 12:42 Iodine; hb 12:42 Sulfa (Sulfonamide Antibiotics); hb - Home Meds: 12:42 aspirin 81 mg Oral TbEC 1 tab three times a week [Active]; Diovan 320 mg Oral tab 1 tab hb once daily [Active]; - PMHx: 12:42 diptheria; esophageal pouch; hiatal hernia; Hypertension; Irregular heart rate; Polio; hb COPD; - PSHx: 12:42 Appendectomy; Hysterectomy; cardiac ablation; hb - Immunization history:: Adult Immunizations up to date. - Coronavirus screen:: The patient has NOT traveled to [place] in the past 14 days. The patient has NOT had contact with known/suspected case of Coronavirus? Proceed with normal triage procedures. - Social history:: Smoking status: Patient denies any tobacco usage or history of. - Ebola Screening: : No symptoms or risks identified at this time. Screenin:54 Abuse screen: Denies threats or abuse. Denies injuries from another. Nutritional ca1 screening: No deficits noted. Tuberculosis screening: No symptoms or risk factors identified. Fall Risk Fall in past 12 months (25 points). Ambulatory Aid- Crutches/Cane/Walker (15 pts). Gait- Impaired (20 pts.). Total Ramires Fall Scale indicates High Risk Score (45 or more points). Fall prevention measures have been instituted. Side Rails Up X 2 Family Present and informed to notify staff if the need to leave the bedside As available patient and family educated on Fall Prevention Program and Strategies. Assessment: 12:54 General: Appears in no apparent distress. comfortable, Behavior is calm, cooperative, ca1 appropriate for age. Pain: Complains of pain in left scapular area Pain does not radiate. Pain currently is 7 out of 10 on a pain scale. Neuro: Level of Consciousness is awake, alert, obeys commands, Oriented to person, place, time, situation, Appropriate for age. Cardiovascular: Heart tones S1 S2 present Capillary refill < 3 seconds Patient's skin is warm and dry. Respiratory: Airway is patent Respiratory effort is even, unlabored, Respiratory pattern is regular, symmetrical, Breath sounds are clear bilaterally. GI: Abdomen is flat, non-distended, Bowel sounds present X 4 quads. Abd is soft and non tender X 4 quads. : No signs and/or symptoms were reported regarding the genitourinary system. EENT: No signs and/or symptoms were reported regarding the EENT system. Derm: Skin is intact, is healthy with good turgor, Skin is pink, warm \T\ dry. Musculoskeletal: Circulation, motion, and sensation intact. Capillary refill < 3 seconds. 13:59 Reassessment: Patient appears in no apparent distress at this time. No changes from ca1 previously documented assessment. Patient and/or family updated on plan of care and expected duration. Pain level reassessed. Patient is alert, oriented x 3, equal unlabored respirations, skin warm/dry/pink. 14:28 Reassessment: Patient appears in no apparent distress at this time. Patient is alert, ca1 oriented x 3, equal unlabored respirations, skin warm/dry/pink. 14:56 Reassessment: Assisted pt to bedside commode. Followed up CT results. ca1 Vital Signs: 12:40 BP 168 / 85; Pulse 54; Resp 20; Temp 97.8; Pulse Ox 98% on R/A; Weight 53.52 kg; Height hb 5 ft. 6 in. (167.64 cm); Pain 5/10; 13:59 BP 168 / 70; Pulse 70; Resp 19 S; Pulse Ox 98% on R/A; ca1 14:32 BP 177 / 73; Pulse 69; Resp 16 S; Pulse Ox 97% on R/A; ca1 15:15 BP 178 / 73; Pulse 72; Resp 16 S; Pulse Ox 98% on R/A; ca1 12:40 Body Mass Index 19.05 (53.52 kg, 167.64 cm) hb ED Course: 12:26 Patient arrived in ED. ag5 12:26 Sharron Desir DO is Private Physician. ag5 12:40 Triage completed. hb 12:40 Arm band placed on. hb 12:49 Yuliya Vazquez, CRISTA is Primary Nurse. ca1 12:52 Erik Maguire MD is Attending Physician. tw4 12:54 Patient has correct armband on for positive identification. Placed in gown. Bed in low ca1 position. Call light in reach. Side rails up X2. infrastructure technician on. Pulse ox on. NIBP on. Warm blanket given. 12:54 No provider procedures requiring assistance completed. ca1 14:04 CT Thoracic Spine Wo Cont In Process Unspecified. EDMS 14:04 CT Pelvis wo Cont In Process Unspecified. EDMS 15:15 Sharron Desir DO is Referral Physician. tw4 15:31 Patient did not have IV access during this emergency room visit. ca1 Administered Medications: No medications were administered Outcome: 15:16 Discharge ordered by . tw4 15:31 Discharged to home via wheelchair, with family. ca1 15:31 Condition: stable 15:31 Discharge instructions given to patient, family, Instructed on discharge instructions, follow up and referral plans. Demonstrated understanding of instructions, follow-up care. 15:31 Patient left the ED. ca1 Signatures: Dispatcher [employer] EDMary Ackerman RN RN Erik Raya MD MD tw4 Yuliya Vazquez RN RN ca1 Jessica Portillo ag5
[2019-03-26 16:10] VITALS: TEMP 97.8
[2019-03-26 16:13] VITALS: BP 178/73; O2SAT 98
== END 2019-03-26 15:31 | disposition home or self-care (01) ==
LOC: ER 12:23
DX: S22.029A Unspecified fracture of second thoracic vertebra, initial encounter for closed fracture (principal); S20.222A Contusion of left back wall of thorax, initial encounter; W18.30XA Fall on same level, unspecified, initial encounter; Y93.9 Activity, unspecified; Y92.9 Unspecified place or not applicable; Z91.09 Other allergy status, other than to drugs and biological substances; Z88.1 Allergy status to other antibiotic agents; Z88.2 Allergy status to sulfonamides; Z88.6 Allergy status to analgesic agent; I10 Essential (primary) hypertension
CPT/HCPCS: 72128; 72192; 99284

== ENCOUNTER 2019-04-17 10:01 | Inpatient (IN) | payer OTHER ==
--- OUTSIDE RECORDS SUMMARY | 2019-04-17 10:03 | XMS REPORT ---
:1930 [facility] Address [address] [place]. [address] [place] [id number] Care Team Providers Name Role Phone Unavailable Unavailable Unavailable Problems This patient has no known problems. Allergies, Adverse Reactions, Alerts This patient has no known allergies or adverse reactions. Medications This patient has no known medications.
--- NOTE | 2019-04-17 11:03 | RAD REPORT ---
EXAM DESCRIPTION: RAD - Chest Single View - 04/17/2019 10:56 am CLINICAL HISTORY: COPD Chest pain. COMPARISON: Chest Single View dated 07/23/2018; Chest Single View dated 03/05/2017; Chest Pa And Lat ( 2 Views) dated 12/11/2016; Chest Single View dated 09/01/2016 FINDINGS: Portable technique limits examination quality. Diffuse COPD is present. The heart is mildly enlarged in size with a tortuous thoracic aorta. No disp laced fractures. IMPRESSION: Mild diffuse COPD.
[2019-04-17] MEDS ORDERED: IPRATROPIUM BROM 0.5MG/2.5ML ONE (11:15)
[2019-04-17] MEDS ORDERED: ALBUTEROL 2.5 MG/3 ML NEB SOL ONE (11:15)
[2019-04-17 11:22] LABS: Absolute Lymphocytes (CBC) 0.5 K/uL (0.7-4.9); Basophils % 0.9 % (0-1.3); Hematocrit 40.2 % (36.0-45.0); Lymphocytes % 10.7 % (15.3-44.8); MPV 9.9 fL (7.6-11.3); RBC Red Blood Cell Count 4.29 M/uL (3.86-4.86)
[2019-04-17 11:24] LABS: Protime INR 1.19
--- NOTE | 2019-04-17 11:28 | EDPHYS ---
Physician Documentation [facility] Name: Joselyn Lomeli Age: 88 yrs Sex: Female : 1930 Arrival Date: 04/17/2019 Time: 10:04 Bed 8 Private MD: Joao Lyon HPI: 04/16 11:20 This 88 yrs old Female presents to ER via Wheelchair with complaints of twin Breathing Difficulty. 11:20 The patient has shortness of breath at rest. Onset: The symptoms/episode began/occurred twin 2 day(s) ago. Duration: The symptoms are continuous, and are steadily getting worse. The patient's shortness of breath is aggravated by coughing, supine position. Associated signs and symptoms: Pertinent positives: non-productive cough. Severity of symptoms: At their worst the symptoms were moderate in the emergency department the symptoms are unchanged. The patient has not experienced similar symptoms in the past. Historical: - Allergies: 10:32 Bactrim; ss 10:32 Demerol; ss 10:32 Iodine; ss 10:32 Sulfa (Sulfonamide Antibiotics); ss - Home Meds: 10:32 aspirin 81 mg Oral TbEC 1 tab three times a week [Active]; Diovan 320 mg Oral tab 1 tab ss once daily [Active]; - PMHx: 10:32 COPD; diptheria; esophageal pouch; hiatal hernia; Hypertension; Irregular heart rate; ss Polio; - PSHx: 10:32 Appendectomy; Hysterectomy; cardiac ablation; ss - Immunization history:: Adult Immunizations up to date. - Social history:: Smoking status: Patient denies any tobacco usage or history of. - Family history:: not pertinent. ROS: 11:20 Constitutional: Negative for fever, chills, and weight loss, Eyes: Negative for injury, twin pain, redness, and discharge, ENT: Negative for injury, pain, and discharge, Neck: Negative for injury, pain, and swelling, Cardiovascular: Negative for chest pain, palpitations, and edema, Abdomen/GI: Negative for abdominal pain, nausea, vomiting, diarrhea, and constipation, Back: Negative for injury and pain, : Negative for injury, bleeding, discharge, and swelling, MS/Extremity: Negative for injury and deformity, Skin: Negative for injury, rash, and discoloration, Neuro: Negative for headache, weakness, numbness, tingling, and seizure, Psych: Negative for depression, anxiety, suicide ideation, homicidal ideation, and hallucinations, Allergy/Immunology: Negative for hives, rash, and allergies, Endocrine: Negative for neck swelling, polydipsia, polyuria, polyphagia, and marked weight changes, Hematologic/Lymphatic: Negative for swollen nodes, abnormal bleeding, and unusual bruising. 11:20 Respiratory: Positive for cough, shortness of breath, wheezing, expiratory. Exam: 11:20 Constitutional: This is a well developed, well nourished patient who is awake, alert, twin and in no acute distress. Head/Face: Normocephalic, atraumatic. Eyes: Pupils equal round and reactive to light, extra-ocular motions intact. Lids and lashes normal. Conjunctiva and sclera are non-icteric and not injected. Cornea within normal limits. Periorbital areas with no swelling, redness, or edema. ENT: Nares patent. No nasal discharge, no septal abnormalities noted. Tympanic membranes are normal and external auditory canals are clear. Oropharynx with no redness, swelling, or masses, exudates, or evidence of obstruction, uvula midline. Mucous membranes moist. Neck: Trachea midline, no thyromegaly or masses palpated, and no cervical lymphadenopathy. Supple, full range of motion without nuchal rigidity, or vertebral point tenderness. No Meningismus. Chest/axilla: Normal chest wall appearance and motion. Nontender with no deformity. No lesions are appreciated. Cardiovascular: Regular rate and rhythm with a normal S1 and S2. No gallops, murmurs, or rubs. Normal PMI, no JVD. No pulse deficits. Abdomen/GI: Soft, non-tender, with normal bowel sounds. No distension or tympany. No guarding or rebound. No evidence of tenderness throughout. Back: No spinal tenderness. No costovertebral tenderness. Full range of motion. Female : Normal external genitalia. Skin: Warm, dry with normal turgor. Normal color with no rashes, no lesions, and no evidence of cellulitis. MS/ Extremity: Pulses equal, no cyanosis. Neurovascular intact. Full, normal range of motion. Neuro: Awake and alert, GCS 15, oriented to person, place, time, and situation. Cranial nerves II-XII grossly intact. Motor strength 5/5 in all extremities. Sensory grossly intact. Cerebellar exam normal. Normal gait. Psych: Awake, alert, with orientation to person, place and time. Behavior, mood, and affect are within normal limits. 11:20 Respiratory: mild respiratory distress is noted, Respirations: labored breathing, that is mild, Breath sounds: decreased breath sounds, rhonchi, wheezing: expiratory 11:25 Musculoskeletal/extremity: DVT Exam: No signs of deep vein thrombosis. no pain, no twin swelling, no tenderness, negative Homans' sign noted on exam, no appreciated bluish discoloration, no erythema, no increased warmth. Vital Signs: 10:29 BP 213 / 71; Pulse 50; Resp 26; Temp 99.2(TE); Pulse Ox 99% on R/A; Weight 52.62 kg; ss Pain 0/10; 11:00 BP 178 / 53; Pulse 44; Resp 28; Pulse Ox 99% on R/A; em 12:00 BP 213 / 59; Pulse 42; Resp 26; Pulse Ox 99% on R/A; em 13:00 BP 182 / 76; Pulse 50; Resp 28; Pulse Ox 97% on R/A; em MDM: 10:[address] [facility] 11:24 Data reviewed: vital signs, nurses notes, lab test result(s), EKG, radiologic studies, [facility] plain films. 04/16 10:41 Order name: Basic Metabolic Panel; Complete Time: 11:56 04/16 10:41 Order name: CBC with Diff; Complete Time: 11:56 04/16 10:41 Order name: LFT's; Complete Time: 11:56 04/16 10:41 Order name: Magnesium; Complete Time: 11:56 04/16 10:41 Order name: NT PRO-BNP; Complete Time: 11:56 04/16 10:41 Order name: PT-INR; Complete Time: 11:56 04/16 10:41 Order name: Troponin (emerg Dept Use Only); Complete Time: 11:56 04/16 11:20 Order name: Flu [facility] 04/16 11:20 Order name: Blood Culture Adult (2) [facility] 04/16 13:46 Order name: Urine Culture 04/16 13:46 Order name: Urine Microscopic Only 04/16 13:51 Order name: Urine Dipstick--Ancillary (enter results) bd 04/16 13:59 Order name: Urine Dipstick-Ancillary EDMT 04/16 14:23 Order name: Urine Microscopic Only EDMT 04/16 10:41 Order name: XRAY Chest (1 view); Complete Time: 11:18 em 04/16 10:41 Order name: EKG; Complete Time: 10:44 em 04/16 10:41 Order name: Cardiac monitoring; Complete Time: 10:52 em 04/16 10:41 Order name: EKG - Nurse/Tech; Complete Time: 11:15 em 04/16 10:41 Order name: IV Saline Lock; Complete Time: 11:15 em 04/16 10:41 Order name: Labs collected and sent; Complete Time: 11: em 04/16 10:41 Order name: O2 Per Protocol; Complete Time: 10:52 em 04/16 10:41 Order name: O2 Sat Monitoring; Complete Time: 10:52 em 04/16 14:08 Order name: Diet Mech. Soft (chopped); Complete Time: 14:08 em Administered Medications: 11:15 Drug: DuoNeb (3:1) (2.5 mg - 0.5 mg) 3 ml Route: Nebulizer; em 15:22 Follow up: Response: No adverse reaction; Marked relief of symptoms em 11:35 Drug: SOLU-Medrol 125 mg Route: IVP; Site: left antecubital; em 14:08 Follow up: Response: No adverse reaction em 11:35 Drug: NS 0.9% 1000 ml Route: IV; Rate: 125 ml/hr; Site: left antecubital; em 15:22 Follow up: IV Status: Infusion continued upon transfer em 11:37 Drug: Rocephin 1 grams Route: IV; Rate: per protocol; Site: left antecubital; em 15:22 Follow up: Response: No adverse reaction; IV Status: Completed infusion; IV Intake: 10mlem 11:55 Not Given (Physician Discretion): Zithromax 500 mg PO once em 12:44 Drug: Zithromax 500 mg Route: IVPB; Infused Over: 1 hrs; Site: left antecubital; em 15:22 Follow up: IV Status: Completed infusion; IV Intake: 250ml em 13:23 Not Given (Physician Discretion): Tylenol 500 mg PO once em Disposition: 04/17/19 11:27 Hospitalization ordered by Suhail Ibrahim for Inpatient Admission. Preliminary diagnosis are Chronic obstructive pulmonary disease with (acute) exacerbation, Tachypnea, not elsewhere classified, Fever, unspecified, Weakness, Essential (primary) hypertension. - Bed requested for Telemetry/MedSurg (Inpatient). - Status is Inpatient Admission. em - Condition is Stable. - Problem is new. - Symptoms have improved. Signatures: Dispatcher [employer] Gabrielle Rivera RN RN dw Anderson, Corey, MD MD cha Munoz, Edgar, RN RN em Smirch, Shelby, RN RN ss Corrections: (The following items were deleted from the chart) 11: 11:27 Hospitalization Ordered by Suhail Ibrahim MD for Inpatient Admission. Preliminary twin diagnosis is Chronic obstructive pulmonary disease with (acute) exacerbation; Tachypnea, not elsewhere classified; Fever, unspecified; Weakness. Bed requested for Telemetry/MedSurg (Inpatient). Status is Inpatient Admission. Condition is Stable. Problem is new. Symptoms have improved. twin 15:02 11:27 04/17/2019 11:27 Hospitalization Ordered by Suhail Ibrahim MD for Inpatient dw Admission. Preliminary diagnosis is Chronic obstructive pulmonary disease with (acute) exacerbation; Tachypnea, not elsewhere classified; Fever, unspecified; Weakness; Essential (primary) hypertension. Bed requested for Telemetry/MedSurg (Inpatient). Status is Inpatient Admission. Condition is Stable. Problem is new. Symptoms have improved. twin 15:23 15:02 04/17/2019 11:27 Hospitalization Ordered by Suhail Ibrahim MD for Inpatient em Admission. Preliminary diagnosis is Chronic obstructive pulmonary disease with (acute) exacerbation; Tachypnea, not elsewhere classified; Fever, unspecified; Weakness; Essential (primary) hypertension. Bed requested for Telemetry/MedSurg (Inpatient). Status is Inpatient Admission. Condition is Stable. Problem is new. Symptoms have improved. dw
--- NOTE | 2019-04-17 11:28 | ER ---
Nurse's Notes [facility] Name: Joselyn Lomeli Age: 88 yrs Sex: Female : 1930 Arrival Date: 04/17/2019 Time: 10:04 Bed 8 Private MD: Diagnosis: Chronic obstructive pulmonary disease with (acute) exacerbation;Tachypnea, not elsewhere classified;Fever, unspecified;Weakness;Essential (primary) hypertension Presentation: 04/16 10:29 Chief complaint: Patient states: difficulty breathing, fatigue and decreased appetite ss that began last night. Coronavirus screen: The patient has NOT traveled to a country currently being monitored by the [facility] within the last 14 days. Proceed with normal triage procedures. Ebola Screen: Patient denies exposure to infectious person. Patient denies travel to an Ebola-affected area in the 21 days before illness onset. Initial Sepsis Screen: Does the patient meet any 2 criteria? No. Patient's initial sepsis screen is negative. Does the patient have a suspected source of infection? No. Patient's initial sepsis screen is negative. Risk Assessment: Do you want to hurt yourself or someone else? Patient reports no desire to harm self or others. 10:29 Method Of Arrival: Wheelchair ss 10:29 Acuity: AZAR 3 ss Historical: - Allergies: 10:32 Bactrim; ss 10:32 Demerol; ss 10:32 Iodine; ss 10:32 Sulfa (Sulfonamide Antibiotics); ss - Home Meds: 10:32 aspirin 81 mg Oral TbEC 1 tab three times a week [Active]; Diovan 320 mg Oral tab 1 tab ss once daily [Active]; - PMHx: 10:32 COPD; diptheria; esophageal pouch; hiatal hernia; Hypertension; Irregular heart rate; ss Polio; - PSHx: 10:32 Appendectomy; Hysterectomy; cardiac ablation; ss - Immunization history:: Adult Immunizations up to date. - Social history:: Smoking status: Patient denies any tobacco usage or history of. - Family history:: not pertinent. Screenin:50 Abuse screen: Denies threats or abuse. Nutritional screening: No deficits noted. em Tuberculosis screening: No symptoms or risk factors identified. Fall Risk None identified. Assessment: 10:50 General: Appears in no apparent distress. uncomfortable, Behavior is calm, cooperative, em Reports fever for > 3 days. Pain: Denies pain. Neuro: Level of Consciousness is awake, alert, obeys commands, Oriented to person, place, time, situation, Appropriate for age. Cardiovascular: Reports shortness of breath, Denies chest pain, Capillary refill < 3 seconds Patient's skin is warm and dry. Rhythm is sinus bradycardia. Respiratory: Reports shortness of breath at rest cough that is productive, Airway is patent Respiratory effort is even, unlabored, Respiratory pattern is regular, tachypnea Breath sounds are clear bilaterally. GI: Abdomen is flat, Patient currently denies nausea, vomiting. Derm: Skin is intact, is fragile, is thin. Musculoskeletal: Capillary refill < 3 seconds, Range of motion: intact in all extremities. 12:04 Reassessment: unable to tolerate PO medication, Dr. Lomeli notified. em 13:47 Reassessment: Patient appears in no apparent distress at this time. Patient and/or em family updated on plan of care and expected duration. Pain level reassessed. pending room assignment. 14:45 Reassessment: Patient appears in no apparent distress at this time. bedside report em given to CRISTA Estrada. Vital Signs: 10:29 BP 213 / 71; Pulse 50; Resp 26; Temp 99.2(TE); Pulse Ox 99% on R/A; Weight 52.62 kg; ss Pain 0/10; 11:00 BP 178 / 53; Pulse 44; Resp 28; Pulse Ox 99% on R/A; em 12:00 BP 213 / 59; Pulse 42; Resp 26; Pulse Ox 99% on R/A; em 13:00 BP 182 / 76; Pulse 50; Resp 28; Pulse Ox 97% on R/A; em ED Course: 10:04 Patient arrived in ED. fj1 10:18 Joao Lomeli MD is Attending Physician. twin 10:27 Abelino Coughlin, CRISTA is Primary Nurse. em 10:31 Triage completed. ss 10:32 Arm band placed on right wrist. ss 10:50 Patient has correct armband on for positive identification. Placed in gown. Bed in low em position. Call light in reach. Side rails up X2. Adult w/ patient. monitoring analyst on. Pulse ox on. NIBP on. 10:50 Patient has correct armband on for positive identification. Placed in gown. Bed in low em position. Call light in reach. Side rails up X2. Adult w/ patient. monitoring analyst on. Pulse ox on. NIBP on. 10:50 Initial lab(s) drawn, by me, sent to lab. Inserted saline lock: 20 gauge in left em antecubital area, using aseptic technique. Blood collected. 11:04 XRAY Chest (1 view) In Process Unspecified. EDMS 11:26 Suhail Ibrahim MD is Hospitalizing Provider. [facility] 11:26 EKG done, by ED staff, reviewed by Joao Lomeli MD. jb1 15:21 No provider procedures requiring assistance completed. Patient admitted, IV remains in em place. Administered Medications: 11:15 Drug: DuoNeb (3:1) (2.5 mg - 0.5 mg) 3 ml Route: Nebulizer; em 15:22 Follow up: Response: No adverse reaction; Marked relief of symptoms em 11:35 Drug: SOLU-Medrol 125 mg Route: IVP; Site: left antecubital; em 14:08 Follow up: Response: No adverse reaction em 11:35 Drug: NS 0.9% 1000 ml Route: IV; Rate: 125 ml/hr; Site: left antecubital; em 15:22 Follow up: IV Status: Infusion continued upon transfer em 11:37 Drug: Rocephin 1 grams Route: IV; Rate: per protocol; Site: left antecubital; em 15:22 Follow up: Response: No adverse reaction; IV Status: Completed infusion; IV Intake: 10mlem 11:55 Not Given (Physician Discretion): Zithromax 500 mg PO once em 12:44 Drug: Zithromax 500 mg Route: IVPB; Infused Over: 1 hrs; Site: left antecubital; em 15:22 Follow up: IV Status: Completed infusion; IV Intake: 250ml em 13:23 Not Given (Physician Discretion): Tylenol 500 mg PO once em Intake: 15:22 IV: 250ml; Total: 250ml. em 15:22 IV: 10ml; Total: 260ml. em Outcome: 11:27 Decision to Hospitalize by Provider. twin 15:21 Admitted to Tele accompanied by nurse, family with patient, via wheelchair, room 206, em with chart, Report called to CRISTA Estrada 15:21 Condition: good 15:21 Instructed on the need for admit, Demonstrated understanding of instructions. 15:23 Patient left the ED. em Signatures: Dispatcher [employer] Rikki Galvan jb1 Joao Lomeli MD MD cha Munoz, Edgar, CRISTA RN Roula Monae RN RN Justo Resendiz fj1
[2019-04-17] MEDS ORDERED: METHYLPREDNISOLONE 125 MG INJ ONE (11:29)
[2019-04-17] MEDS ORDERED: ACETAMINOPHEN 500 MG TAB ONE (11:30)
[2019-04-17] MEDS ORDERED: NA CHLORIDE 0.9% 1,000 ML ONE (11:30)
[2019-04-17] MEDS ORDERED: AZITHROMYCIN 250 MG TAB ONE (11:30)
[2019-04-17] MEDS ORDERED: CEFTRIAXONE/SWI 1gm 1 GM/10 ML SYR ONE (11:30)
[2019-04-17 11:40] LABS: ALT/SGPT 14 U/L (12-78); AST/SGOT 14 U/L (15-37); Albumin 3.8 g/dL (3.4-5.0); Alkaline Phosphatase 81 U/L (45-117); BUN Blood Urea Nitrogen 15 mg/dL (7-18); Bicarbonate 33 mmol/L (21-32); Bilirubin Direct 0.4 mg/dL (0-0.2); Bilirubin Total 1.3 mg/dL (0.2-1.0); Glucose Level 106 mg/dL (74-106); Magnesium 2.2 mg/dL (1.8-2.4); NT PRO-BNP 1039 pg/mL (<450); Potassium 3.7 mmol/L (3.5-5.1); Sodium Level 140 mmol/L (136-145); Troponin (Emerg Dept Use Only) < 0.02 ng/mL (0.0-0.045)
[2019-04-17] MEDS ORDERED: AZITHROMYCIN IV 500 MG in NA CHLORIDE 0.9% 250 ML IVPB ONE (12:00)
[2019-04-17] MEDS ORDERED: ACETAMINOPHEN 160 MG/5 ML UCUP ONE (12:03)
[2019-04-17 13:59] LABS: Urine Blood 2+ (NEG); Urine Glucose NEGATIVE (NEG); Urine Protein 2+ (NEG); Urine Specific Gravity >1.030 (1.005-1.030); Urine pH 5.5 (5.0-7.0)
[2019-04-17 14:15] VITALS: BMI 18.7
[2019-04-17 14:21] LABS: Urine Bacteria >50 /HPF (<20); Urine Culture Reflex Order REFLEXED; Urine RBC <5 /HPF (NONE SEEN)
--- NOTE | 2019-04-17 15:30 | EKG ---
Test Date: 2019-04-17 Test Time: 11:20:52 Paint Stock Clerk: NATIVIDAD MEASUREMENT RESULTS: Intervals: Rate: 68 UT: 234 QRSD: 78 QT: 404 QTc: 429 [place]: P: 50 UT: 234 QRS: 6 T: 59 INTERPRETIVE STATEMENTS: Sinus rhythm with 1st degree AV block Otherwise normal ECG Compared to ECG 07/23/2018 09:34:20 First degree AV block now present Second-degree AV block, Mobitz type I (Wenckebach) no longer present Electronically Signed On 04-17-19 15:28:57 CDT by Pineda Meier
[2019-04-17] MEDS: NA CHLORIDE 0.9% 1,000 ML IV SCH ×2 (16:22→23:24)
[2019-04-17] MEDS ORDERED: ONDANSETRON 4 MG/2 ML VIAL IV PRN (16:22)
[2019-04-17] MEDS ORDERED: ACETAMINOPHEN 500 MG TAB PO PRN (16:22)
[2019-04-17] MEDS: IPRATROPIUM BROM 0.5MG/2.5ML NEB SCH ×2 (17:00→20:30)
[2019-04-17] MEDS: ALBUTEROL 2.5 MG/3 ML NEB SOL NEB SCH ×2 (17:00→20:30)
[2019-04-17] MEDS: ENOXAPARIN 40 MG/0.4 ML SQ SCH (18:05)
[2019-04-17] MEDS: METHYLPREDNISOLONE 40 MG INJ IV SCH (20:28)
[2019-04-17] MEDS: PANTOPRAZOLE 40 MG INJ IVP SCH (23:21)
[2019-04-17] MEDS: SODIUM CHLORIDE 0.9% 10ML INJ IV PRN (23:21)
--- NOTE | 2019-04-18 00:28 | HP ---
Date of Admission: 04/17/2019 Chief Complaint: Shortness of breath, cough, congestion. Code Status: Full. History Of Present Illness: Patient is an 88-year-old female with past medical history of COPD, dysp hagia, hiatal hernia, hypertension, irregular heart rate. History of polio, comes in with sudden ons et of shortness of breath, which began 2 days ago. Patient also reports some cough, congestion, subj ective fever, and generalized weakness. Her symptoms are constant, moderate, progressively worsening . Denies any ill contacts. No travel outside the country. No exposure to recent [place] virus. The patient's symptoms are aggravated. Shortness of breath is aggravated by coughing. No alleviating f actors. Workup revealed elevated blood pressure. Initially, she was saturating 99% on room air, her temperature was 99.2. Workup revealed normal white blood cell count. Chest x-ray showed mild diffu se COPD. Patient was referred for admission. When seen in the ER, she was awake, alert, and oriente d x3, in some mild distress. 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 Surgical History: Appendectomy, hysterectomy, cardiac ablation. Allergies: TO BACTRIM, DEMEROL, IODINE, AND SULFA. Medications: Aspirin 81 mg 3 times a week. Diovan 320 mg daily. Social History: Patient denies ever using any tobacco. No alcohol use. No illicit drug use. Lives at home with her 2 sons and a stepson. Family History: Denies any premature coronary artery disease in the family. Review of Systems: Ten-point system reviewed, negative except as per HPI. Physical Examination: Vital Signs: Blood pressure 213/71, pulse 50, respirations 26, temperature 99.2, O2 99% on room air. General: Awake, alert, and oriented x3 elderly female, in some mild distress, ill-appearing. HEENT: Normocephalic, atraumatic. PERRLA. EOMI. Moist mucous membranes. Oropharynx is clear. Po or dentition. Conjunctivae are anicteric. Neck: Supple. No JVD. Trachea midline. CV: S1, S2. Peripheral pulses present. No murmurs. Respiratory: Diminished breath sounds, some wheezing heard. No stridor. No use of accessory muscle s. Gastrointestinal: Abdomen is soft, nontender, nondistended. Positive bowel sounds. Extremities: No clubbing, cyanosis, or edema. No calf tenderness. Neuro: Cranial nerves 2 through 12 intact grossly. No focal neurological deficits. Speech is daysi l. Skin: No rashes. Normal skin turgor. Psych: Mood is okay. Affect is full. Insight and judgment are good. Laboratory Data: Sodium 140, potassium 3.7, chloride 104, CO2 of 33, BUN 15, creatinine 0.55, glucos e 106, calcium 9, magnesium 2.2, total bilirubin 1.3. INR 1.19. WBC 4.8, H and H 13.6 and 40.2, aaron telets 131, neutrophils 81.6%. Influenza screen is negative. Chest x-ray personally reviewed shows mild diffuse COPD. Assessment: An 88-year-old female with, 1.Acute chronic obstructive pulmonary disease exacerbation. Patient has increased cough with clear sputum production along with shortness of breath. We will start on nebulizer treatments, IV steroids , and supplemental oxygen to keep O2 saturations at 89% to 93%. 2.Uncontrolled hypertension. Blood pressure is 200 systolic, improved to 170s in the ER. We will r esume home medications as appropriate. 3.Hyperlipidemia. 4.Dysphagia. Patient has some esophageal dysfunction. We will continue with modified diet. June ed to have speech evaluate the patient. Plan: Start on DVT prophylaxis with Lovenox. Admit patient to Med-Surg, place as inpatient. Length of stay greater than 2 midnights. DORY Voice ID: [id number]
[2019-04-18] MEDS: ALBUTEROL 2.5 MG/3 ML NEB SOL NEB SCH ×4 (01:50→19:25)
[2019-04-18] MEDS: IPRATROPIUM BROM 0.5MG/2.5ML NEB SCH ×4 (01:50→19:25)
[2019-04-18 05:54] LABS: Absolute Lymphocytes (CBC) 0.2 K/uL (0.7-4.9); Basophils % 0.2 % (0-1.3); Hematocrit 37.5 % (36.0-45.0); Lymphocytes % 8.4 % (15.3-44.8); MPV 10.2 fL (7.6-11.3); RBC Red Blood Cell Count 4.07 M/uL (3.86-4.86)
[2019-04-18 06:01] LABS: BUN Blood Urea Nitrogen 16 mg/dL (7-18); Bicarbonate 33 mmol/L (21-32); Glucose Level 136 mg/dL (74-106); Potassium 4.5 mmol/L (3.5-5.1); Sodium Level 143 mmol/L (136-145)
[2019-04-18 07:38] LABS: Blood Morphology Comment NOT SEEN (NOT SEEN); Platelet Estimate DECR; Urine White Blood Cell Casts OK
[2019-04-18] MEDS ORDERED: VALSARTAN 160 MG TAB PO SCH (09:00)
[2019-04-18] MEDS ORDERED: ASPIRIN EC 81 MG TAB PO SCH (09:00)
[2019-04-18] MEDS ORDERED: CEFTRIAXONE/SWI 1gm 1 GM/10 ML SYR IVP SCH (09:00)
[2019-04-18] MEDS: ENOXAPARIN 40 MG/0.4 ML SQ SCH (09:24)
[2019-04-18] MEDS: SODIUM CHLORIDE 0.9% 10ML INJ IV PRN (09:25)
[2019-04-18] MEDS: METHYLPREDNISOLONE 40 MG INJ IV SCH ×2 (09:25→17:42)
[2019-04-18] MEDS: PANTOPRAZOLE 40 MG INJ IVP SCH ×2 (09:25→20:49)
--- NOTE | 2019-04-18 09:26 | EKG ---
Test Date: 2019-04-17 Test Time: 17:28:48 Retail Shift Manager: VIVEK MEASUREMENT RESULTS: Intervals: Rate: 67 AR: QRSD: 82 QT: 430 QTc: 454 [place]: P: AR: QRS: -13 T: 53 INTERPRETIVE STATEMENTS: Atrial fibrillation Minimal voltage criteria for LVH, may be normal variant Nonspecific T wave abnormality, probably digitalis effect Abnormal ECG Compared to ECG 04/17/2019 11:20:52 Left ventricular hypertrophy now present T-wave abnormality now present Sinus rhythm no longer present First degree AV block no longer present Electronically Signed On 04-18-19 09:26:37 CDT by Diomedes Wright
--- NOTE | 2019-04-18 11:28 | EKG ---
Test Date: 2019-04-18 Test Time: 00:48:53 Decision Analyst: PANCHO MEASUREMENT RESULTS: Intervals: Rate: 58 VA: QRSD: 88 QT: 412 QTc: 404 [place]: P: 55 VA: QRS: 20 T: 70 INTERPRETIVE STATEMENTS: Sinus rhythm with 2nd degree AV block ([place]ob[place] I) Nonspecific T wave abnormality Abnormal ECG Compared to ECG 04/17/2019 17:28:48 Atrial fibrillation no longer present Left ventricular hypertrophy no longer present T-wave abnormality still present Electronically Signed On 04-18-19 11:27:55 CDT by Diomedes Wright
--- NOTE | 2019-04-18 11:35 | RAD REPORT ---
EXAM DESCRIPTION: RAD - Barium Swallow Modified - 04/18/2019 11:29 am CLINICAL HISTORY: Difficulty swallowing COMPARISON: [facility] Protocol dated 11/04/2015 TECHNIQUE: The patient was given liquid, semi-solid and solid forms of barium. Lateral view fluorosc opic imaging was performed in conjunction with speech pathology service. FINDINGS: Laryngeal penetration: Not cleared Aspiration: COUGH with Thin, [place], Honey Pharyngeal residue: Diffuse with all tested consistencies (thin, nectar, honey) in the vallecular, p yriform, and posterior wall. Absent swallow response, Profound swallow delay, Decreased epiglottic inversion, Esophageal pouch, De creased UES opening, Severe osteophytes, Esophageal dysmotility. Total fluoroscopy time: 6 minutes and 33 seconds
--- NOTE | 2019-04-18 11:36 | RAD REPORT ---
EXAM DESCRIPTION: RAD - Chest Pa And Lat (2 Views) - 04/18/2019 11:29 am CLINICAL HISTORY: aspiration during MBS Chest pain. COMPARISON: Chest Single View dated 04/17/2019; Chest Single View dated 07/23/2018; Chest Single View dated 03/05/2017; Chest Pa And Lat (2 Views) dated 12/11/2016 FINDINGS: Emphysematous changes are noted. There is evidence of barium aspiration trachea and left l ower lobe tracheobronchial tree. A small left pleural effusion is seen with opacity in the left lung base likely aspiration pneumonia. The heart is normal in size.
--- NOTE | 2019-04-18 11:50 | P.PN ---
Subjective Date of Service: 04/18/19 Patient has no complaints and wants to eat. She denies shortness of breath or cough. She failed swallow evaluation test and was told she aspirated barium swallow. Speech report patient has esophageal sphincter dysfunction can recommend ENT evaluation. Physical Examination - Vital Signs Temperature: 98.5 F Blood Pressure: 186/82 Pulse: 75 Respirations: 22 Pulse Ox (%): 95 - Physical Exam General: Alert, In no apparent distress, Oriented x3 HEENT: PERRLA, Mucous membr. moist/pink Neck: Supple, JVD not distended Respiratory: Clear to auscultation bilaterally, Normal air movement Cardiovascular: No edema, Regular rate/rhythm, Normal S1 S2 Gastrointestinal: Normal bowel sounds, Soft and benign, Non-distended, No tenderness Musculoskeletal: No swelling, No erythema Integumentary: No rashes Neurological: Normal speech, Normal strength at 5/5 x4 extr - Studies Microbiology Data (last 24 hrs): 04/17/19 12:00 Blood - Blood Anaerobic Blood Culture - Final 04/17/19 11:35 Blood - Blood Anaerobic Blood Culture - Final 04/17/19 11:35 Nasopharnyx Influenza Type A Antigen Screen - Final 04/17/19 11:35 Nasopharnyx Influenza Type B Antigen Screen - Final Assessment And Plan - Current Problems (Diagnosis) (1) COPD exacerbation Current Visit: Yes Status: Chronic (2) Esophageal dysphagia Current Visit: Yes Status: Chronic (3) Accelerated hypertension Current Visit: Yes Status: Acute - Plan Continue bronchodilators IV steroid Prophylactic IV Zosyn given aspiration during barium steady. ENT consult. GI consult pending ENT consult. IV hydration Keep NPO. IV hydralazine p.r.n. for BP spikes Clonidine patch for blood pressure until patient is able to eat.
[2019-04-18] MEDS: PIPER/TAZO/NS 3.375gm 3.375 GM/100 ML BAG IVPB SCH (12:42)
[2019-04-18] MEDS ORDERED: CLONIDINE 0.1 MG/PATCH TD SCH (13:00)
[2019-04-18] MEDS: NA CHLORIDE 0.9% 1,000 ML IV SCH (20:46)
[2019-04-19] MEDS: PIPER/TAZO/NS 3.375gm 3.375 GM/100 ML BAG IVPB SCH ×3 (00:44→16:41)
[2019-04-19] MEDS: METHYLPREDNISOLONE 40 MG INJ IV SCH ×3 (00:46→16:41)
[2019-04-19] MEDS: IPRATROPIUM BROM 0.5MG/2.5ML NEB SCH ×4 (02:20→19:10)
[2019-04-19] MEDS: ALBUTEROL 2.5 MG/3 ML NEB SOL NEB SCH ×4 (02:20→19:10)
[2019-04-19 05:47] LABS: Absolute Lymphocytes (CBC) 0.1 K/uL (0.7-4.9); Basophils % 0.2 % (0-1.3); Hematocrit 36.8 % (36.0-45.0); Lymphocytes % 2.3 % (15.3-44.8); MPV 10.5 fL (7.6-11.3); RBC Red Blood Cell Count 3.92 M/uL (3.86-4.86)
[2019-04-19 06:04] LABS: BUN Blood Urea Nitrogen 24 mg/dL (7-18); Bicarbonate 31 mmol/L (21-32); Glucose Level 124 mg/dL (74-106); Sodium Level 145 mmol/L (136-145)
[2019-04-19] MEDS: PANTOPRAZOLE 40 MG INJ IVP SCH ×2 (08:48→22:06)
[2019-04-19] MEDS: NA CHLORIDE 0.9% 1,000 ML IV SCH (08:48)
[2019-04-19] MEDS: ENOXAPARIN 40 MG/0.4 ML SQ SCH (08:48)
[2019-04-19 09:34] LABS: Urine White Blood Cell Casts OK
[2019-04-19 09:35] LABS: Blood Morphology Comment NOT SEEN (NOT SEEN); Platelet Estimate ADEQ
--- NOTE | 2019-04-19 12:28 | P.PN ---
Subjective Date of Service: 04/19/19 Patient has no complaints She denies shortness of breath or cough. Patient seen by Dr. Booker yesterday. She has known history of Bulbar polio. Multiple factors contributing to the dysphagia include severe scoliosis, prior history of bulbar polio, and advanced age. She aspirated barium during barium swallow study yesterday Physical Examination - Vital Signs Temperature: 98.3 F Blood Pressure: 167/65 Pulse: 98 Respirations: 20 Pulse Ox (%): 100 - Physical Exam General: Alert, In no apparent distress, Oriented x3 HEENT: Mucous membr. moist/pink, Sclerae nonicteric Neck: Supple, JVD not distended Respiratory: Clear to auscultation bilaterally, Normal air movement Cardiovascular: No edema, Regular rate/rhythm, Normal S1 S2 Gastrointestinal: Normal bowel sounds, Soft and benign, Non-distended, No tenderness Musculoskeletal: No swelling, No erythema Integumentary: No rashes Neurological: Normal speech, Normal strength at 5/5 x4 extr - Studies Microbiology Data (last 24 hrs): 04/17/19 12:00 Blood - Blood Anaerobic Blood Culture - Final 04/17/19 11:35 Blood - Blood Anaerobic Blood Culture - Final Assessment And Plan - Current Problems (Diagnosis) (1) COPD exacerbation Current Visit: Yes Status: Chronic (2) Esophageal dysphagia Current Visit: Yes Status: Chronic (3) Accelerated hypertension Current Visit: Yes Status: Acute - Plan Continue bronchodilators and steroid Prophylactic IV Zosyn given aspiration during barium study ENT input appreciated. No intervention recommended. Outpatient GI evaluation recommended. Patient is declining any procedure or PEG tube placement. Condition IV hydration Trial of soft diet IV hydralazine p.r.n. for BP spikes Resume home antihypertensives if he tolerates of diet. Meanwhile continue Clonidine patch for blood pressure until patient is able to eat.
[2019-04-19] MEDS: D5 0.9 NS 1,000 ML IV SCH (17:54)
--- NOTE | 2019-04-19 20:06 | CON ---
Ms. Lomeli is known to me from my outpatient clinic. She has a history of hearing loss, childhood history of polio and diphtheria. She is admitted to the hospital and had a swallow study demonstrating significant dysphagia and aspiration. An ENT consultation was requested for further evaluation and management of her swallowing problems. I reviewed the patient's medical chart including her swallow study and chest x- rays and met with the patient, her son, and her granddaughter, and had a detailed discussion regarding the findings of the studies as well as the risks, benefits, and alternatives for treatment. During the course of the discussion, the son describes evaluation performed approximately 5 to 7 years ago at [facility] in their Post-polio Clinic. He described some sort of laryngoscopy exam with possibly an EGD. He states that Dr. Jr Quiroz, who is an ballroom dance instructor with [employer] was present in part of the discussion. At that time, the patient was noted to have some difficulty swallowing, but given her age and the overall findings, no treatment was recommended at that time. The patient and her family and I spoke about options. On examination, the patient is alert, awake. She appears to have good cognitive function and decision-making skills with good judgment. She has severe kyphosis of the thoracic spine. The bulk of my time with the patient was spent discussing the findings as well as treatment options. Given the degree of her kyphosis, the rigid laryngoscopy and esophagoscopy is not mechanically feasible. Consideration could be made for a gastroenterology evaluation with a flexible endoscope and possible injection to the cricopharyngeus in order to treat the cricopharyngeal spasm. However, the patient has significant abnormalities of her esophagus as well as hiatal hernia. The relaxation of the cricopharyngeus muscle with botulinum toxin carries a risk of increased reflux to the larynx. We discussed the findings of aspiration, including the risk of pneumonia. We discussed that placement of a feeding tube for alternative nutritional access is unlikely to impact or decrease her risk of developing pneumonia due to continued aspiration or microaspiration of saliva. The patient cites her advanced age and overall health conditions as a primary motivating factor for a conservative or observational approach. She has very low interest in further discussion of a feeding tube. She is concerned about risk of sedation medications on her overall neurological affect. She had a friend who recently , who had a feeding tube and witnessed some of the challenges that go along with that. We discussed her goals of maintaining an optimal quality of life and acknowledging that aspirate development of aspiration pneumonia could affect the quantity of her life. Her granddaughter at the bedside is a nurse and provides support and assistance in understanding the ramifications of the treatment options. Given the medical comorbidities of post-polio syndrome, gastroesophageal reflux, severe spinal kyphosis, and advanced age, I am in agreement with this patient's desire for conservative measures. We discussed that the swallow study did not demonstrate any likely improvement or safe dietary modifications. If any further questions or concerns, please have the patient contact my office to schedule further discussion on an outpatient basis. INGE Voice ID: [id number] Report ID: [id number] MTDD
[2019-04-19] MEDS ORDERED: LORazepam 2 MG/ML VIAL IV ONE (22:12)
[2019-04-20] MEDS: PIPER/TAZO/NS 3.375gm 3.375 GM/100 ML BAG IVPB SCH ×3 (00:25→16:25)
[2019-04-20] MEDS: METHYLPREDNISOLONE 40 MG INJ IV SCH ×2 (00:26→08:37)
[2019-04-20] MEDS: IPRATROPIUM BROM 0.5MG/2.5ML NEB SCH ×4 (01:45→19:58)
[2019-04-20] MEDS: ALBUTEROL 2.5 MG/3 ML NEB SOL NEB SCH ×4 (01:45→19:58)
[2019-04-20] MEDS: D5 0.9 NS 1,000 ML IV SCH ×2 (05:47→20:40)
[2019-04-20] MEDS: ENOXAPARIN 40 MG/0.4 ML SQ SCH (08:37)
[2019-04-20] MEDS: PANTOPRAZOLE 40 MG INJ IVP SCH ×2 (08:37→21:48)
--- NOTE | 2019-04-20 11:45 | P.PN ---
Subjective Date of Service: 04/20/19 Patient has no new complaints. She states she is just hungry. Admit the nephew and a son in the room who are requesting for hospice evaluation. Patient did not tolerate any food yesterday and was choking on her food. Physical Examination - Vital Signs Temperature: 98.6 F Blood Pressure: 183/79 Pulse: 84 Respirations: 24 Pulse Ox (%): 95 - Physical Exam General: Alert, In no apparent distress, Oriented x3 HEENT: Mucous membr. moist/pink, Sclerae nonicteric Neck: Supple Respiratory: Clear to auscultation bilaterally, Normal air movement Cardiovascular: No edema, Regular rate/rhythm, Normal S1 S2 Gastrointestinal: Normal bowel sounds, Soft and benign, No tenderness Musculoskeletal: No swelling Integumentary: No rashes Neurological: Normal speech, Normal strength at 5/5 x4 extr Assessment And Plan - Current Problems (Diagnosis) (1) COPD exacerbation Current Visit: Yes Status: Chronic (2) Esophageal dysphagia Current Visit: Yes Status: Chronic (3) Accelerated hypertension Current Visit: Yes Status: Acute - Plan Continue bronchodilators. Discontinue steroid. Prophylactic IV Zosyn given aspiration during barium study Outpatient GI evaluation recommended. Patient and family are torn between PEG tube and hospice but are leaning more towards hospice Hospice consult placed. Condition IV hydration IV hydralazine p.r.n. for BP spikes Increase clonidine patch due to uncontrolled blood pressure.
[2019-04-20] MEDS ORDERED: BISACODYL 10 MG RECTAL SUPP PR ONE (11:59)
[2019-04-20] MEDS ORDERED: CLONIDINE 0.2 MG/PATCH TD SCH (12:00)
--- NOTE | 2019-04-20 14:37 | P.CNS ---
Date of Consult: 04/20/19 PC: I was asked to see this 88 year female in regards to the possible placement of a G-tube. HPC: Patient has a long complicated history with many issues. She is been found that she is unable to eat due to aspiration as well as what sounds like a pharyngeal diverticulum. PMH: Polio syndrome, PSHx: Negative SOC: Long list was reviewed SYS REVIEW: Patient gentle as weakness. She is 89 years of age and anxious to be 89 she says. She has been unable to eat for the last few days. O/E awake alert vital signs are stable HEENT: Within normal limits Chest: Chest movement equal bilateral ABD: Soft LOCO: IMPRESSION: Malnutrition PLAN: I was asked to visit with this patient is see about the placement of a G- tube. I would do it laparoscopically. The risks of the procedure discussed with the patient. However she has a lot of family members nieces and grandchildren who are involved apparently in this decision making. I left her with information, I told her about the procedure the benefits and also emphasized the risks to she will defer her decision for now. I have inserted her that I will be available should she decide for surgical placement.
[2019-04-20] MEDS: HYDRALAZINE HCL 20 MG/ML VIAL IV PRN ×2 (16:32→21:49)
[2019-04-20] MEDS ORDERED: LORazepam 2 MG/ML VIAL IV PRN (23:07)
[2019-04-20] MEDS ORDERED: LORazepam 2 MG/ML VIAL IV ONE (23:07)
[2019-04-21] MEDS: PIPER/TAZO/NS 3.375gm 3.375 GM/100 ML BAG IVPB SCH ×3 (01:04→17:11)
[2019-04-21] MEDS: IPRATROPIUM BROM 0.5MG/2.5ML NEB SCH ×4 (02:00→19:40)
[2019-04-21] MEDS: ALBUTEROL 2.5 MG/3 ML NEB SOL NEB SCH ×4 (02:00→20:00)
[2019-04-21 08:22] LABS: Absolute Lymphocytes (CBC) 0.5 K/uL (0.7-4.9); Basophils % 0.1 % (0-1.3); Lymphocytes % 4.9 % (15.3-44.8); MPV 10.5 fL (7.6-11.3); RBC Red Blood Cell Count 4.43 M/uL (3.86-4.86)
[2019-04-21 08:38] LABS: ALT/SGPT 15 U/L (12-78); AST/SGOT 14 U/L (15-37); Albumin 3.2 g/dL (3.4-5.0); Alkaline Phosphatase 55 U/L (45-117); BUN Blood Urea Nitrogen 17 mg/dL (7-18); Bicarbonate 35 mmol/L (21-32); Glucose Level 113 mg/dL (74-106); Sodium Level 146 mmol/L (136-145)
[2019-04-21] MEDS: PANTOPRAZOLE 40 MG INJ IVP SCH ×2 (09:38→20:26)
[2019-04-21] MEDS: ENOXAPARIN 40 MG/0.4 ML SQ SCH (09:38)
[2019-04-21] MEDS: HYDRALAZINE HCL 20 MG/ML VIAL IV PRN ×2 (09:39→22:06)
[2019-04-21] MEDS: D5 0.9 NS 1,000 ML IV SCH ×2 (09:39→23:20)
[2019-04-21 10:02] LABS: Blood Morphology Comment NOT SEEN (NOT SEEN); Platelet Estimate DECR; Urine White Blood Cell Casts OK
--- NOTE | 2019-04-21 11:33 | P.PN ---
Subjective Date of Service: 04/21/19 Patient has no new complaints. Hospice meeting scheduled for today. She is currently NPO. Physical Examination - Vital Signs Temperature: 98.2 F Blood Pressure: 181/78 Pulse: 85 Respirations: 21 Pulse Ox (%): 97 - Physical Exam General: In no apparent distress, Oriented x3 HEENT: Mucous membr. moist/pink Neck: Supple, JVD not distended Respiratory: Clear to auscultation bilaterally, Normal air movement Cardiovascular: No edema, Regular rate/rhythm, Normal S1 S2 Gastrointestinal: Normal bowel sounds, Soft and benign, No tenderness Integumentary: No rashes Neurological: Normal speech, Normal strength at 5/5 x4 extr Assessment And Plan - Current Problems (Diagnosis) (1) COPD exacerbation Current Visit: Yes Status: Chronic (2) Esophageal dysphagia Current Visit: Yes Status: Chronic (3) Accelerated hypertension Current Visit: Yes Status: Acute - Plan COPD exacerbation resolved. Bronchodilators prn Continue IV antibiotics Meeting on hospice planned for today. PEG tube placement pending decision regarding hospice. Continue IV hydration IV hydralazine p.r.n. for BP spikes Clonidine patch for blood pressure.
[2019-04-21] MEDS ORDERED: CLONIDINE 0.3 MG/PATCH TD SCH (12:00)
[2019-04-22] MEDS: PIPER/TAZO/NS 3.375gm 3.375 GM/100 ML BAG IVPB SCH ×3 (00:08→21:06)
[2019-04-22] MEDS: IPRATROPIUM BROM 0.5MG/2.5ML NEB SCH ×4 (00:50→19:40)
[2019-04-22] MEDS: ALBUTEROL 2.5 MG/3 ML NEB SOL NEB SCH ×4 (01:05→19:40)
[2019-04-22] MEDS: HYDRALAZINE HCL 20 MG/ML VIAL IV PRN ×3 (03:49→16:21)
[2019-04-22 07:15] LABS: BUN Blood Urea Nitrogen 15 mg/dL (7-18); Bicarbonate 34 mmol/L (21-32); Glucose Level 127 mg/dL (74-106); Sodium Level 147 mmol/L (136-145)
[2019-04-22 07:45] LABS: Potassium 2.9 mmol/L (3.5-5.1)
[2019-04-22] MEDS: ENOXAPARIN 40 MG/0.4 ML SQ SCH (09:13)
[2019-04-22] MEDS: D5 0.9 NS 1,000 ML IV SCH ×2 (09:13→12:40)
[2019-04-22] MEDS: PANTOPRAZOLE 40 MG INJ IVP SCH ×2 (09:13→20:27)
--- NOTE | 2019-04-22 09:30 | RAD REPORT ---
EXAM DESCRIPTION: RAD - Chest Single View - 04/22/2019 9:17 am CLINICAL HISTORY: Pneumonia COMPARISON: Portable frontal and lateral views April 17 TECHNIQUE: AP portable chest image was obtained 04/22/2019 9:17 am . FINDINGS: Lungs are fibrotic as a baseline. Low lung volumes noted. Lung base atelectasis is present . Right pleural effusion is new or slightly enlarged from comparison. Small left pleural effusion is not excluded. Heart and vasculature are normal. No pneumothorax. No acute bony abnormality seen. No a cute aortic findings suspected. IMPRESSION: Right pleural effusion with possible left pleural effusion. Lung base atelectasis is pre sent. Increased right base opacification could be monitored for developing pneumonia.
--- NOTE | 2019-04-22 11:19 | P.PN ---
Subjective Date of Service: 04/22/19 Patient states she is hungry. She is also coughing with cream to green-colored sputum production. Family has decided to proceed with PEG tube placement. Hypokalemia noted She is currently NPO. Physical Examination - Vital Signs Temperature: 98.7 F Blood Pressure: 196/78 Pulse: 92 Respirations: 24 Pulse Ox (%): 98 - Physical Exam General: Alert, Oriented x3, Other (Intermittently confused) HEENT: Mucous membr. moist/pink Neck: Supple, JVD not distended Respiratory: Crackles/rales (Bilateral lower lobe crackles) Cardiovascular: No edema, Regular rate/rhythm, Normal S1 S2 Gastrointestinal: Normal bowel sounds, Soft and benign, No tenderness Musculoskeletal: No swelling Integumentary: No rashes Neurological: Other (Nonfocal) Assessment And Plan - Current Problems (Diagnosis) (1) COPD exacerbation Current Visit: Yes Status: Chronic (2) Esophageal dysphagia Current Visit: Yes Status: Chronic (3) Accelerated hypertension Current Visit: Yes Status: Acute - Plan COPD exacerbation resolved. Bronchodilators prn Continue IV antibiotics aspiration pneumonitis Family have decided to proceed with PEG tube placement. Keep NPO post midnight. Dr. Palumbo has been informed of the PEG tube placement. Continue IV hydration IV hydralazine p.r.n. for BP spikes Clonidine patch for blood pressure.
[2019-04-22] MEDS: KCL 20 MEQ/100 mL IVPB 20 MEQ/100 ML BAG IV SCH ×4 (13:00→23:50)
[2019-04-23] MEDS: PIPER/TAZO/NS 3.375gm 3.375 GM/100 ML BAG IVPB SCH ×3 (01:00→13:33)
[2019-04-23] MEDS: IPRATROPIUM BROM 0.5MG/2.5ML NEB SCH ×3 (01:40→14:05)
[2019-04-23] MEDS: ALBUTEROL 2.5 MG/3 ML NEB SOL NEB SCH ×3 (01:40→14:05)
[2019-04-23] MEDS: KCL 20 MEQ/100 mL IVPB 20 MEQ/100 ML BAG IV SCH (01:52)
[2019-04-23] MEDS: D5 0.9 NS 1,000 ML IV SCH ×3 (02:00→15:20)
[2019-04-23 06:18] LABS: BUN Blood Urea Nitrogen 24 mg/dL (7-18); Bicarbonate 33 mmol/L (21-32); Glucose Level 157 mg/dL (74-106); Potassium 3.8 mmol/L (3.5-5.1); Sodium Level 151 mmol/L (136-145)
--- NOTE | 2019-04-23 06:58 | EKG ---
Test Date: 2019-04-21 Test Time: 00:29:12 Visitor Information Assistant: RT MEASUREMENT RESULTS: Intervals: Rate: 75 MD: QRSD: 78 QT: 370 QTc: 413 [place]: P: MD: QRS: -5 T: 145 INTERPRETIVE STATEMENTS: Atrial fibrillation Minimal voltage criteria for LVH, may be normal variant Nonspecific T wave abnormality, probably digitalis effect Abnormal ECG Compared to ECG 04/18/2019 00:48:53 Left ventricular hypertrophy now present Sinus rhythm no longer present T-wave abnormality still present Electronically Signed On 04-23-19 06:55:18 CDT by Pineda Meier
[2019-04-23] MEDS: PANTOPRAZOLE 40 MG INJ IVP SCH (08:17)
[2019-04-23] MEDS: ENOXAPARIN 40 MG/0.4 ML SQ SCH (08:18)
[2019-04-23] MEDS ORDERED: KCL 20 MEQ/100 mL IVPB 20 MEQ/100 ML BAG IV SCH (09:00)
[2019-04-23] MEDS: HYDRALAZINE HCL 20 MG/ML VIAL IV PRN ×2 (13:34)
[2019-04-23 14:31] VITALS: TEMP 99
--- NOTE | 2019-04-23 14:33 | P.DS ---
Admission Date: 04/17/19 Discharge Date: 04/23/19 Primary Care Provider: unknown Disposition: HOSPICE-HOME Discharge Condition: FAIR Reason for Admission: SOB Consultations: Surgery-Dr. Palumbo Procedures: CXR: COMPARISON: Chest Single View dated 04/17/2019; Chest Single View dated 2018; Chest Single View dated 03/05/2017; Chest Pa And Lat (2 Views) dated 2016 FINDINGS: Emphysematous changes are noted. There is evidence of barium aspiration trachea and left lower lobe tracheobronchial tree. A small left pleural effusion is seen with opacity in the left lung base likely aspiration pneumonia. The heart is normal in size. MBS: FINDINGS: Laryngeal penetration: Not cleared Aspiration: COUGH with Thin, [place], Honey Pharyngeal residue: Diffuse with all tested consistencies (thin, nectar, honey ) in the vallecular, pyriform, and posterior wall. Absent swallow response, Profound swallow delay, Decreased epiglottic inversion , Esophageal pouch, Decreased UES opening, Esophageal dysmotility. Total fluoroscopy time: 6 minutes and 33 seconds Medical problem list: Shortness of breast secondary to COPD exacerbation with aspiration pneumonia, COPD end-stage GERD with hiatal hernia Hypertension Dysphagia high risk for aspiration with modifying barium swallow showing Multiple esophageal pouches/diverticulae, esophageal dysmotility, retropulsion Moderate protein malnutrition Brief History of Present Illness: 88-year-old female with history of end-stage COPD, GERD with hiatal hernia, hypertension and dysphagia. Patient presented with shortness of breath. Patient was admitted for further evaluation. Chest x-ray initially showed COPD changes. Hospital Course: Patient presented with shortness of breath. Patient found have COPD exacerbation. Patient was started on treatment. There was some question of aspiration pneumonia as well. X-ray showed left lung opacity likely related to aspiration. Patient with prior history of dysphagia. Patient also with moderate protein malnutrition. Patient was evaluated by speech therapy including modified barium swallow. Dysphagia high risk for aspiration was identified. Modified barium swallow showed multiple esophageal patches/ diverticuli, esophageal dysmotility and repulsion. Patient was placed NPO due to high risk for aspiration. Plan of care and advanced directives addressed in detail with patient and family. This included surgical evaluation for possible PEG tube for nutrition. After discussion with surgery, Peg tube was contraindicated due to her history of GERD/hiatal hernia. Other options of nutrition was discussed in detail including laparoscopic or open surgical procedure to place J-tube. Risks and benefits addressed with the patient and family. Patient is moderate risk for complication due to her end-stage COPD and current physical status. After lengthy discussion patient declined surgical intervention. Hospice was addressed at that point. Patient and family have agreed to initiate hospice at home. At discharge patient may continue with Augmentin 400 mg/5 mL twice daily for 7 days. Aspiration precaution in place. Patient will continue with hospice and comfort feeding. For her end-stage COPD, patient will continue with home oxygen to maintain sats above 93%. Patient may continue with Atrovent/albuterol nebs 1 unit dose 4 times a day as needed for shortness of breath. Patient may continue with Dulera 2 puffs twice daily. Further adjustment in medication can be done by hospice. Patient with other medical problems including hypertension. She may continue with her medication of valsartan daily. Further adjustment can be done by hospice. As mentioned above patient with high risk for aspiration. Patient now on hospice. Patient will continue with comfort feeding. Patient with history of GERD and hiatal hernia. Patient may continue with Protonix 40 mg 1 pill twice daily. Vital Signs/Physical Exam: Temp Pulse Resp BP Pulse Ox 97 F 95 H 20 133/62 98 04/23/19 08:00 04/23/19 08:00 04/23/19 08:00 04/23/19 08:00 04/23/19 08:00 General: Alert, In no apparent distress, Cooperative HEENT: Atraumatic Neck: Supple Respiratory: Expiratory wheezes Cardiovascular: Normal pulses, Regular rate/rhythm Gastrointestinal: Normal bowel sounds, Soft and benign, Non-distended, No masses , No rebound, No guarding Musculoskeletal: No tenderness, No warmth Integumentary: No warmth, No cyanosis Neurological: Normal speech, Normal strength at 5/5 x4 extr, Normal affect Other Physical/Emotional Findings: Muscle wasting to the upper and lower extremities. Laboratory Data at Discharge: WBC 9.8 K/uL (4.3-10.9) D 04/21/19 08:00 Hgb 14.0 g/dL (12.0-15.0) 04/21/19 08:00 Hct 41.0 % (36.0-45.0) 04/21/19 08:00 Plt Count 114 K/uL (152-406) L 04/21/19 08:00 PT 14.0 SECONDS (9.5-12.5) H 04/17/19 11:05 INR 1.19 04/17/19 11:05 Sodium 151 mmol/L (136-145) H 04/23/19 05:56 Potassium 3.8 mmol/L (3.5-5.1) 04/23/19 05:56 BUN 24 mg/dL (7-18) H 04/23/19 05:56 Creatinine 0.56 mg/dL (0.55-1.3) 04/23/19 05:56 Glucose 157 mg/dL (74-106) H 04/23/19 05:56 Magnesium 2.2 mg/dL (1.8-2.4) 04/17/19 11:05 Total Bilirubin 1.0 mg/dL (0.2-1.0) 04/21/19 08:00 AST 14 U/L (15-37) L 04/21/19 08:00 ALT 15 U/L (12-78) 04/21/19 08:00 Alkaline Phosphatase 55 U/L (45-117) 04/21/19 08:00 Home Medications: Aspirin [Aspirin EC 81 MG] 81 mg PO M,W,F 04/17/19 Valsartan [Diovan] 320 mg PO DAILY 04/17/19 Albuterol Neb [Proventil 0.083% Neb Soln] 3 ml NEB [id number] PRN #120 amp Amox Tr/Potassium Clavulanate [Augmentin 400-57 mg/5 ml] 5 ml PO BID #1 bottle 04/23/19 Ipratropium Neb [Atrovent*] 2.5 ml NEB [id number] PRN #120 amp 04/23/19 Mometasone/Formoterol [Dulera 100 Mcg-5 Mcg Inhaler] 2 gm IH BID #1 hfa.aer.ad 04/23/19 Pantoprazole [Protonix Tab] 40 mg PO BID #60 tab 04/23/19 New Medications: Albuterol Neb [Proventil 0.083% Neb Soln] 3 ml NEB [id number] PRN #120 amp PRN Reason: Shortness Of Breath Amox Tr/Potassium Clavulanate [Augmentin 400-57 mg/5 ml] 5 ml PO BID #1 bottle Ipratropium Neb [Atrovent*] 2.5 ml NEB [id number] PRN #120 amp PRN Reason: Shortness Of Breath Mometasone/Formoterol [Dulera 100 Mcg-5 Mcg Inhaler] 2 gm IH BID #1 hfa.aer.ad Pantoprazole [Protonix Tab] 40 mg PO BID #60 tab Patient Discharge Instructions: 1. Patient will go home with hospice in place. 2. Patient presented with shortness of breath. Patient found have COPD exacerbation. Patient was started on treatment. There was some question of aspiration pneumonia as well. X-ray showed left lung opacity likely related to aspiration. Patient with prior history of dysphagia. Patient also with moderate protein malnutrition. Patient was evaluated by speech therapy including modified barium swallow. Dysphagia high risk for aspiration was identified. Modified barium swallow showed multiple esophageal patches/ diverticuli, esophageal dysmotility and repulsion. Patient was placed NPO due to high risk for aspiration. Plan of care and advanced directives addressed in detail with patient and family. This included surgical evaluation for possible PEG tube for nutrition. After discussion with surgery, Peg tube was contraindicated due to her history of GERD/hiatal hernia. Other options of nutrition was discussed in detail including laparoscopic or open surgical procedure to place J-tube. Risks and benefits addressed with the patient and family. Patient is moderate risk for complication due to her end-stage COPD and current physical status. After lengthy discussion patient declined surgical intervention. Hospice was addressed at that point. Patient and family have agreed to initiate hospice at home. At discharge patient may continue with Augmentin 400 mg/5 mL twice daily for 7 days. Aspiration precaution in place. Patient will continue with hospice and comfort feeding. For her end-stage COPD, patient will continue with home oxygen to maintain sats above 93%. Patient may continue with Atrovent/albuterol nebs 1 unit dose 4 times a day as needed for shortness of breath. Patient may continue with Dulera 2 puffs twice daily. Further adjustment in medication can be done by hospice. 3. Patient with other medical problems including hypertension. She may continue with her medication of valsartan daily. Further adjustment can be done by hospice. 4. As mentioned above patient with high risk for aspiration. Patient now on hospice. Patient will continue with comfort feeding. Patient with history of GERD and hiatal hernia. Patient may continue with Protonix 40 mg 1 pill twice daily. Diet: Comfort feeding Activity: Fall precautions Time spent managing pt's care (in minutes): 55
[2019-04-23 17:08] VITALS: BP 160/80
[2019-04-23 17:11] VITALS: O2SAT 95
--- NOTE | 2019-04-24 12:59 | CON ---
Date of Consultation: 04/23/2019 Brief History Of Present Illness: Patient is an 88-year-old female with past medical histo ry of COPD, dysphagia, hiatal hernia, hypertension, irregular heart rate, history of polio, who comes in with sudden onset of shortness of breath, began on 04/17/2019. She was seen, had cough, congesti on, subjective fever, chills, generalized weakness. Her symptoms were constant, moderate, progressiv ar worse. She was seen here at the hospital and no recent exposure to coronavirus or any other area s consistent with that finding. Past Medical History: Significant for hypertension, polio, diphtheria, dysphagia due to her esophage al pouch, hiatal hernia, irregular heart rate. Surgical History: Appendectomy, hysterectomy, cardiac ablation. Allergies: BACTRIM, DEMEROL, IODINE, SULFA. Medications: Aspirin, Diovan. Social History: She denies smoking, alcohol, recreational drug use. She lives at her home with her 2 sons. Review of Systems: A 10-point review of systems other than HPI, denies. Physical Examination: Vital Signs: At the time of my examination, her vital signs were a blood pressure 160/80, SpO2 94% o n 2 L nasal cannula. Her BMI was 18.7, heart rate was 106, respiratory rate 20. General: She is awake, alert, but low-grade confusion. She is surrounded by family who is her sons who are her medical decision makers. HEENT: Otherwise, normocephalic. Sclerae are anicteric. Mucosa is moist. Oropharynx clear. Neck: Supple. No JVD. Chest: Normal expansion and excursion. Cardiovascular: Tachycardic, otherwise regular rhythm. Pulmonary: Decreased breath sounds bilaterally. Abdomen: Soft, nontender, nondistended. Pelvis stable. Extremities: No clubbing, cyanosis, edema. Skin: Warm and dry. Laboratory Data: Reveals a white blood count of 9.8, hemoglobin is 14.0, hematocrit of 41.0, platele t count is 114. Coags showed a PT of 14.0, INR of 1.1. Chemistry showed sodium 151, potassium 3.9, chloride 114, carbon dioxide 33, BUN 24, creatinine 0.5, glucose is 157. She had imaging performed w [facility] included a chest x-ray as well as a modified barium swallow. Modified barium swallow from 04/17, was officially read as laryngeal penetration now cleared, aspiration cough with thin nectar ho ermias, pharyngeal residue that was diffuse with all consistency thin nectar honey in the vallecula, pir iform and posterior martinez, absent shallow response, profound swallow delay, decreased epiglottic inve rsion, esophageal pouch, decreasing UES, upper esophageal sphincter opening, severe osteophytes, esop hageal dysmotility. Assessment And Plan: This is an 88-year-old female who comes in with dysphagia, malnutrition, and pu lmonary issues. I have been asked to see the patient regarding a possible percutaneous endoscopic gastrostomy tube pl acement; however, patient has a significant hiatal hernia and given her medical comorbidities, I have explained the risks, benefits, alternatives of the above-stated plan and that this could be increase d risk and as such I do not recommend a placement of a gastrostomy tube of either open or percutaneou s endoscopic gastrostomy type at this time as she has a significant risk for aspiration and this will not be eliminated by gastric feedings. Therefore, given her hiatal hernia, which makes her a high r isk for percutaneous endoscopic gastrostomy tube placement, the other options are surgical feeding tu be placement. I have recommended that should she decide to proceed with a surgical feeding tube, I w ould recommend jejunostomy feeding tube, not in the gastric pouch, therefore reducing the chance of a spiration. Patient has talked to the family and has decided that she would rather have a hospice con sult and try taking p.o. diet on her own without any surgical intervention and as such I will follow along while the patient is here. Hospice consult has been made and the family has decided along with the patient to pursue this at this point. I will be avail able for future needs. GOVIND/ROLAND Voice ID: [id number] Report ID: [id number]
== END 2019-04-23 17:01 | disposition hospice, home (50) | DRG 190 ==
LOC: ER 10:01 → ERHOLD 12:31 → 2ND 15:16
PROVIDERS: ADMIT Family Medicine; ATTEND Family Medicine
DX: J44.1 Chronic obstructive pulmonary disease with (acute) exacerbation (principal); J69.0 Pneumonitis due to inhalation of food and vomit; Q39.6 Congenital diverticulum of esophagus; E46 Unspecified protein-calorie malnutrition; Z68.1 Body mass index [BMI] 19.9 or less, adult; R13.10 Dysphagia, unspecified; J44.0 Chronic obstructive pulmonary disease with (acute) lower respiratory infection; E87.6 Hypokalemia; K44.9 Diaphragmatic hernia without obstruction or gangrene; I10 Essential (primary) hypertension; K21.9 Gastro-esophageal reflux disease without esophagitis
CPT/HCPCS: 36415; 71045; 71046; 74230; 80048; 80053; 80076; 81003; 81015; 83735; 83880; 84132; 84484; 85025; 85610; 87040; 87070; 87077; 87086; 87088; 87186; 87205; 87804; 92526; 92610; 92611; 93005; 94640; 96365; 96366; 96375; 97110; 97116; 97161; 97530; 99285; C9113; J0360; J0456; J0696; J1650; J2543; J2920; J2930; J7030; J7042